=== PATIENT | male | born 1960 | race Two or more races ===

== ENCOUNTER 2018-06-10 10:06 | Inpatient (IN) | payer OTHER ==
[2018-06-10 10:53] VITALS: BMI 29.5
--- NOTE | 2018-06-10 16:40 | HP ---
CIWA Score - CIWA Score Nausea/Vomitin-Int. Nausea w/Dry Heave Muscle Tremors: 2 Anxiety: 2 Agitation: 2 Paroxysmal Sweats: 4-Forehead w/Sweat Beads Orientation: 1-Uncertain about Date (no distress) Tacttile Disturbances: 0-None Auditory Disturbances: 1-Very Mild Visual Disturbances: 0-None Headache: 0-None Present CIWA-Ar Total Score: 16 Admission ROS S - HPI Chief Complaint: alcohol withdrawal sx Allergies/Adverse Reactions: Allergies Allergy/AdvReac Type Severity Reaction Status Date / Time No Known Allergies Allergy Verified 09/28/15 21:24 History of Present Illness: 57 yo male with of alcohol and nicotine dependence is here seeking detox. [facility] MMTP on methadone 80 mg, last medicated yesterday. Reports seen at [facility] three weeks ago for fall as a result of ETOH intoxication. PMHX : Abdominal hernia, DMII, HTN, Hep C, depression. Re[ ports feeling decreased and relapsed a 45 days ago after the of his younger brother. Last detox [facility] 5 months ago. Exam Limitations: No Limitations - Ebola screening Have you traveled outside of the country in the last 21 days: No (N) Have you had contact with anyone from an Ebola affected area: No Have you been sick,other than usual withdrawal symptoms: No Do you have a fever: No - Review of Systems Constitutional: Chills, Diaphoresis, Loss of Appetite, Changes in sleep, Weakness, Unintentional Wgt. Loss EENT: reports: No Symptoms Reported Respiratory: reports: SOB with Exertion Cardiac: reports: No Symptoms Reported GI: reports: Nausea, Vomiting : reports: No Symptoms Reported Musculoskeletal: reports: Back Pain, Joint Pain Integumentary: reports: No Symptoms Reported Neuro: reports: No Symptoms reported Endocrine: reports: Increased Thirst Hematology: reports: No Symptoms Reported Psychiatric: reports: Orientated x3, Depressed Other Systems: Reviewed and Negative Patient History - Patient Medical History Hx Anemia: No Hx Asthma: No Hx Chronic Obstructive Pulmonary Disease (COPD): No Hx Cancer: No Hx Cardiac Disorders: No Hx Congestive Heart Failure: No Hx Hypertension: Yes Hx Hypercholesterolemia: Yes Hx Pacemaker: No HX Cerebrovascular Accident: Yes Hx Seizures: No Hx Dementia: No Hx Diabetes: Yes Hx Gastrointestinal Disorders: No Hx Liver Disease: Yes (Hep C ) Hx Genitourinary Disorders: No Hx Sexually Transmitted Disorders: No Hx Renal Disease (ESRD): No Hx Thyroid Disease: No Hx Human Immunodeficiency Virus (HIV): No (declines testing ) Hx Hepatitis C: Yes Hx Depression: Yes Hx Suicide Attempt: No Hx Bipolar Disorder: No Hx Schizophrenia: No - Patient Surgical History Past Surgical History: No - PPD History Previous Implant?: Yes Documented Results: Positive w/o proof Implanted On Prior [facility] Admission?: No Results: positive ppd PPD to be Administered?: No - Smoking Cessation Smoking history: Current every day smoker Have you smoked in the past 12 months: Yes Aproximately how many cigarettes per day: 4 Hx Chewing Tobacco Use: No Initiated information on smoking cessation: Yes 'Breaking Loose' booklet given: 06/10/18 - Substance & Tx. History Hx Alcohol Use: Yes Hx Substance Use: Yes Substance Use Type: Alcohol Hx Substance Use Treatment: Yes (Last detox [facility] 5 months ago.) - Substances Abused Alcohol Route: Oral Frequency: Daily Amount used: fith & 1pt Vodka Age of first use: 11 Date of Last Use: 06/10/18 Family Disease History - Family Disease History Family Disease History: Diabetes: Father (HAD CA. OF THE PROSTATE AND ), Mother (), CA: Father Admission Physical Exam S - Vital Signs Vital Signs: Vital Signs - 24 hr 06/10/18 10:51 Temperature 97.7 F Pulse Rate 87 Respiratory 18 Rate Blood Pressure 148/84 - Physical General Appearance: Yes: Disheveled, Moderate Distress, Tremorous, Sweating, Anxious HEENTM: Yes: EOMI, Normal ENT Inspection, Normocephalic, Normal Voice, Pharynx Normal, Tm's normal, Other (poor dentition) Respiratory: Yes: Chest Non-Tender, Lungs Clear, Normal Breath Sounds, No Respiratory Distress, No Accessory Muscle Use Neck: Yes: No masses,lesions,Nodules, Trachea in good position Breast: Yes: Breast Exam Deferred Cardiology: Yes: Regular Rhythm, Regular Rate Abdominal: Yes: Normal Bowel Sounds, Non Tender, Soft, Protuberent Genitourinary: Yes: Within Normal Limits Back: Yes: Normal Inspection Musculoskeletal: Yes: full range of Motion, Pelvis Stable, Back pain, Other ( uses cane for ambulation) Extremities: Yes: Normal Capillary Refill, Normal Inspection, Normal Range of Motion, Non-Tender 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 intact, Fully Oriented, Alert, Motor Strength 5/5 Integumentary: Yes: Normal Color, Warm, Diaphoresis Lymphatic: Yes: Within Normal Limits - Diagnostic (1) Diabetes mellitus type 2 in obese Current Visit: Yes Status: Chronic (2) Asthma Current Visit: Yes Status: Chronic Qualifiers: Asthma severity: mild Asthma persistence: intermittent Asthma complication type: unspecified Qualified Code(s): J45.20 - Mild intermittent asthma, uncomplicated (3) GERD (gastroesophageal reflux disease) Current Visit: Yes Status: Chronic Qualifiers: Esophagitis presence: esophagitis presence not specified Qualified Code(s) : K21.9 - Gastro-esophageal reflux disease without esophagitis (4) HTN (hypertension) Current Visit: Yes Status: Chronic Qualifiers: Hypertension type: essential hypertension Qualified Code(s): I10 - Essential (primary) hypertension (5) Hypercholesteremia Current Visit: Yes Status: Chronic (6) Methadone maintenance therapy patient Current Visit: Yes Status: Chronic Comment: on MMTP at [facility] dose 80 mg, dose pending verification (7) Nicotine dependence Current Visit: Yes Status: Chronic Qualifiers: Nicotine product type: cigarettes Substance use status: uncomplicated Qualified Code(s): F17.210 - Nicotine dependence, cigarettes, uncomplicated (8) Alcohol dependence with withdrawal Current Visit: Yes Status: Acute Qualifiers: Complication of substance-induced condition: uncomplicated Qualified Code(s ): F10.230 - Alcohol dependence with withdrawal, uncomplicated (9) Nausea and vomiting Current Visit: Yes Status: Acute Qualifiers: Vomiting type: unspecified Vomiting Intractability: unspecified Qualified Code(s): R11.2 - Nausea with vomiting, unspecified Cleared for Admission [facility] - Detox or Rehab [facility] Level of Care: Medically Managed [facility]ath Alcohol Content Breath Alcohol Content: 0.084 Urine Drug Screen - Results Drug Screen Negative: No Urine Drug Screen Results: BZO-Benzodiazepines, MTD-Methadone
[2018-06-10] MEDS ORDERED: MAGNESIUM HYDROX 2400MG/30ML ORAL SUSPENSION 30 ML CUP PO PRN (16:46)
[2018-06-10] MEDS ORDERED: MAGNESIUM CITRATE 300 ML BOTTLE PO PRN (16:46)
[2018-06-10] MEDS ORDERED: guaiFENesin/D-METHORPHAN HB 10 ML UNIT-DOSE CUPS PO PRN (16:46)
[2018-06-10] MEDS ORDERED: hydrOXYzine PAMOATE 50 MG CAPSULE (FP) PO PRN (16:46)
[2018-06-10] MEDS ORDERED: IBUPROFEN 400 MG TABLET (FP) PO PRN (16:46)
[2018-06-10] MEDS ORDERED: MAG HYDROX/AL HYDROX/SIMETH 30 ML UNIT-DOSE CUP PO PRN (16:46)
[2018-06-10] MEDS ORDERED: P-EPHED 60MG/TRIPROLIDI 2.5MG TABLET PO PRN (16:46)
[2018-06-10] MEDS ORDERED: NICOTINE POLACRILEX 2 MG GUM BUC PRN (16:46)
[2018-06-10] MEDS ORDERED: LOPERAMIDE HCL 2 MG CAPSULE PO PRN (16:46)
[2018-06-10] MEDS ORDERED: MENTHOL/PHENOL 1 EACH UD MM PRN (16:46)
[2018-06-10] MEDS ORDERED: ONDANSETRON *ODT* 4 MG TABLET SL PRN (16:58)
[2018-06-10] MEDS ORDERED: chlordiazePOXIDE HCL 25 MG CAPSULE PO ONE (17:00)
[2018-06-10] MEDS ORDERED: ALBUTEROL SO4 0.083% IH SOL 2.5 MG/3 ML VIAL.NEB. NEB PRN (17:02)
[2018-06-10] MEDS ORDERED: ALBUTEROL SO4 8 GM HFA INHALER IH ONE (18:38)
[2018-06-10 19:29] LABS: URINE APPEARANCE TURBID; URINE BILIRUBIN NEGATIVE (<2.0 mg/dL); URINE COLOR YELLOW; URINE GLUCOSE (UA) 1+ (NEGATIVE); URINE KETONE NEGATIVE (NEGATIVE); URINE LEUK ESTERASE NEGATIVE (NEGATIVE); URINE NITRITE NEGATIVE (NEGATIVE); URINE PROTEIN NEGATIVE (NEGATIVE); URINE UROBILINOGEN NEGATIVE mg/dL (0.2-1.0)
[2018-06-10] MEDS ORDERED: MELATONIN 5 MG TABLETS PO PRN (22:00)
[2018-06-10] MEDS: THIAMINE HCL 100 MG TABLET (FP) PO SCH (22:14)
[2018-06-10] MEDS: chlordiazePOXIDE HCL 25 MG CAPSULE PO SCH (22:14)
[2018-06-10] MEDS: ATORVASTATIN CA 10 MG TABLET (FP) PO SCH (22:17)
[2018-06-11] MEDS: ALBUTEROL SO4 8 GM HFA INHALER IH PRN (01:53)
[2018-06-11] MEDS: chlordiazePOXIDE HCL 25 MG CAPSULE PO PRN (03:23)
[2018-06-11] MEDS: ACETAMINOPHEN 325 MG TABLET (FP) PO PRN ×2 (03:25→14:20)
[2018-06-11] MEDS: chlordiazePOXIDE HCL 25 MG CAPSULE PO SCH ×4 (05:43→22:04)
[2018-06-11] MEDS: INSULIN SLIDING SCALE (NOVOLOG) 1 VIAL SQ SCH ×2 (06:20→16:57)
--- NOTE | 2018-06-11 07:42 | CONSULT ---
[facility] Psychiatric Consult - Data Date of interview: 06/11/18 Admission source: [facility] Identifying data: This is 57 years old male, single father of three, , living alone, unemployed, on PA, with no psychiatric hospitalization history, with history of alcohol and nicotine dependence, reporting Alcohol withdrawal symptoms and is here seeking detox. [facility]op[facility] MMTP 80MG PER DAY. Substance Abuse History: Smoking history: Current every day smoker. Have you smoked in the past 12 months: Yes. Aproximately how many cigarettes per day: 4. Hx Chewing Tobacco Use: No. Initiated information on smoking cessation: Yes. 'Breaking Loose' booklet given: 06/10/18. - Substance & Tx. History. Hx Alcohol Use: Yes. Hx Substance Use: Yes. Substance Use Type: Alcohol. Hx Substance Use Treatment: Yes (Last detox [facility] 5 months ago.). - Substances Abused. Alcohol. Route: Oral. Frequency: Daily. Amount used: fith & 1pt Vodka. Age of first use: 11. Date of Last Use: 06/10/18 Medical History: DM-2, Asthma, GERD, HTN, Hypercholesterolemia, MMTP 80mg per [facility] Psychiatric History: Patient reports history of anxiety and depression, insomnia , reports taking prior to admission: Trazodone 150mg po qhs for insomnia ands depression. Denies suicidal, homicidal ideation history Physical/Sexual Abuse/Trauma History: Denies Additional Comment: Trazodone 150mg po qhs Mental Status Exam - Mental Status Exam Alert and Oriented to: Person Cognitive Function: Fair Patient Appearance: Unkempt Mood: Sad Affect: Normal Range Patient Behavior: Sedated Speech Pattern: Delayed Voice Loudness: Mildly Soft/Quiet Thought Process: Circumstantial Thought Disorder: Being Controlled Hallucinations: Denies Suicidal Ideation: Denies Homicidal Ideation: Denies Insight/Judgement: Fair Sleep: Difficulty falling asleep Appetite: Weight gain Muscle strength/Tone: Mild Hypotonicity Gait/Station: Shuffling Additional Comments: Trazodone 150mg po qhs Psychiatric Findings - Problem List ([place] 1, 2,3) (1) Alcohol dependence with withdrawal Current Visit: Yes Status: Acute Qualifiers: Complication of substance-induced condition: uncomplicated Qualified Code(s ): F10.230 - Alcohol dependence with withdrawal, uncomplicated (2) Diabetes mellitus type 2 in obese Current Visit: Yes Status: Chronic (3) GERD (gastroesophageal reflux disease) Current Visit: Yes Status: Chronic Qualifiers: Esophagitis presence: esophagitis presence not specified Qualified Code(s) : K21.9 - Gastro-esophageal reflux disease without esophagitis (4) HTN (hypertension) Current Visit: Yes Status: Chronic Qualifiers: Hypertension type: essential hypertension Qualified Code(s): I10 - Essential (primary) hypertension (5) Hypercholesteremia Current Visit: Yes Status: Chronic (6) Methadone maintenance therapy patient Current Visit: Yes Status: Chronic Comment: on MMTP at [facility] dose 80 mg, dose pending verification (7) Nicotine dependence Current Visit: Yes Status: Chronic Qualifiers: Nicotine product type: cigarettes Substance use status: uncomplicated Qualified Code(s): F17.210 - Nicotine dependence, cigarettes, uncomplicated (8) Alcohol dependence Current Visit: No Status: Acute Qualifiers: Substance use status: in withdrawal Complication of substance-induced condition: with unspecified complication Qualified Code(s): F10.239 - Alcohol dependence with withdrawal, unspecified (9) MDD (major depressive disorder), recurrent episode, severe Current Visit: No Status: Acute (10) Diabetes 1.5, managed as type 1 Current Visit: No Status: Chronic (11) Major depressive disorder, recurrent severe without psychotic features Current Visit: No Status: Chronic (12) Obesity Current Visit: No Status: Chronic Qualifiers: Obesity type: unspecified obesity type Qualified Code(s): E66.9 - Obesity, unspecified - Initial Treatment Plan Initial Treatment Plan: Trazodone 150mg po qhs
[2018-06-11 09:42] LABS: HEMATOCRIT 32.3 % (35.4-49); HEMOGLOBIN 10.6 GM/dL (11.7-16.9); MCH 31.9 pg (25.7-33.7); MCHC 32.8 g/dl (32.0-35.9); MEAN CELL VOLUME 97.4 fl (80-96); MEAN PLT VOLUME 10.8 fl (7.5-11.1); PLATELET COUNT 133 K/MM3 (134-434); RBC 3.32 M/mm3 (4.00-5.60); RDW 14.7 % (11.9-15.9); WHITE BLOOD COUNT 8.1 K/mm3 (4.0-10.0)
[2018-06-11] MEDS ORDERED: LISINOPRIL 10 MG TABLET (FP) PO SCH (10:00)
[2018-06-11] MEDS: SULFACETAMIDE SODIUM 10% OPHTHALMIC DROPS 15 ML BOTTLE OS SCH (10:02)
[2018-06-11] MEDS: PRENATAL VITAMINS W/ FOLIC ACID TABLET (FP) PO SCH (10:03)
[2018-06-11] MEDS: NICOTINE 14 MG/24 HOURS TOPICAL PATCH TD SCH (10:04)
[2018-06-11] MEDS ORDERED: METHADONE HCL 40 MG DISPERSABLE TABLET PO ONE (10:25)
[2018-06-11 10:28] LABS: CHLORIDE 96 mmol/L (98-107); POTASSIUM 3.5 mmol/L (3.5-5.1); SODIUM 135 mmol/L (136-145)
[2018-06-11 10:48] LABS: BLOOD UREA NITROGEN 9 mg/dL (7-18); CREATININE 0.8 mg/dL (0.7-1.3); GLUCOSE,RANDOM 140 mg/dL (74-106)
[2018-06-11 10:49] LABS: ALBUMIN 2.8 g/dl (3.4-5.0); ALK PHOS 141 U/L (45-117); ANION GAP 9 (8-16); BILIRUBIN,TOTAL 0.9 mg/dL (0.2-1.0); CALCIUM 7.6 mg/dL (8.5-10.1); CO2 30 mmol/L (21-32); SGOT/AST 78 U/L (15-37); SGPT/ALT 44 U/L (12-78); TOT PROT 6.6 g/dl (6.4-8.2)
--- NOTE | 2018-06-11 10:50 | PN ---
S CIWA - CIWA Score Nausea/Vomitin-Mild Nausea/No Vomiting Muscle Tremors: 4-Moderate,w/Arms Extend Anxiety: 3 Agitation: 3 Paroxysmal Sweats: 1-Minimal Palms Moist Orientation: 0-Oriented Tacttile Disturbances: 1-Very Mild Itch/Numbness Auditory Disturbances: 0-None Visual Disturbances: 0-None Headache: 1-Very Mild CIWA-Ar Total Score: 14 [facility] Progress Note (SOAP) Subjective: sweat tremor trouble to fall a sleep restlessness Objective: 06/11/18 10:42 Vital Signs Temperature 98.2 F 06/11/18 10:09 Pulse Rate 78 06/11/18 10:09 Respiratory Rate 16 06/11/18 10:09 Blood Pressure 150/94 06/11/18 10:09 O2 Sat by Pulse Oximetry (%) Laboratory Last Values WBC 8.1 K/mm3 (4.0-10.0) 06/11/18 07:00 RBC 3.32 M/mm3 (4.00-5.60) L 06/11/18 07:00 Hgb 10.6 GM/dL (11.7-16.9) L 06/11/18 07:00 Hct 32.3 % (35.4-49) L D 06/11/18 07:00 MCV 97.4 fl (80-96) H 06/11/18 07:00 MCH 31.9 pg (25.7-33.7) 06/11/18 07:00 MCHC 32.8 g/dl (32.0-35.9) 06/11/18 07:00 RDW 14.7 % (11.9-15.9) 06/11/18 07:00 Plt Count 133 K/MM3 (134-434) L 06/11/18 07:00 MPV 10.8 fl (7.5-11.1) 06/11/18 07:00 POC Glucometer 120 UNITS (80-120) 06/11/18 05:49 Urine Color Yellow 06/10/18 17:23 Urine Appearance Turbid 06/10/18 17:23 Urine pH 5.0 (5.0-8.0) 06/10/18 17:23 Ur Specific [place] 1.020 (1.001-1.035) 06/10/18 17:23 Urine Protein Negative (NEGATIVE) 06/10/18 17:23 Urine Glucose (UA) 1+ (NEGATIVE) H 06/10/18 17:23 Urine Ketones Negative (NEGATIVE) 06/10/18 17:23 Urine Blood Negative (NEGATIVE) 06/10/18 17:23 Urine Nitrite Negative (NEGATIVE) 06/10/18 17:23 Urine Bilirubin Negative (<2.0 mg/dL) 06/10/18 17:23 Urine Urobilinogen Negative mg/dL (0.2-1.0) 06/10/18 17:23 Ur Leukocyte Esterase Negative (NEGATIVE) 06/10/18 17:23 lab noted Assessment: 06/11/18 10:42 withdrawal sx 06/11/18 10:50 hypertension Plan: continue detox
--- NOTE | 2018-06-11 13:36 | EKG ---
Test Reason : Blood Pressure : / mmHG Vent. Rate : 068 BPM Atrial Rate : 068 BPM P-R Int : 140 ms QRS Dur : 084 ms QT Int : 416 ms P-R-T Axes : 058 038 073 degrees QTc Int : 442 ms NORMAL SINUS RHYTHM INCREASED R/S RATIO IN V1, CONSIDER EARLY TRANSITION OR POSTERIOR INFARCT ABNORMAL ECG NO PREVIOUS ECGS AVAILABLE Confirmed by LUIS GALEANA MD ([id number]) on 06/11/2018 1:36:09 PM Referred By: Confirmed By:LUIS GALEANA MD
[2018-06-11] MEDS ORDERED: LISINOPRIL 10 MG TABLET (FP) PO ONE (14:00)
--- NOTE | 2018-06-11 14:51 | PN ---
[facility] Progress Note Note: S: c/o mid chest sharp pain 9/10 over "months" no treatment subsided spontaneously O: observed patient lying on bed, breathing even equal no shortness of breath bp 144/94 lisinopril 10 mg x 1 patient tolerated well S1S2 no murmur no gallops lungs: clear bilaterally left lower lob breath sound diminished abdomen soft none tenderness denies dizziness tylenal 650 mg x 1 chest x ray indicated that multiple thoratic trauma with healed fractured ribs cage EKG no significant change A: none cardiac chest wall pain P: patient relocated to close to nurse's station bp monitoring post lisinopril 10 mg + tylenal 650 mg x 1 repeat bp after 2 hours around 4 pm
[2018-06-11] MEDS: ATORVASTATIN CA 10 MG TABLET (FP) PO SCH (22:04)
[2018-06-11] MEDS: traZODone HCL 50 MG TABLET (FP) PO SCH (22:04)
[2018-06-11] MEDS: THIAMINE HCL 100 MG TABLET (FP) PO SCH (22:05)
[2018-06-12] MEDS: chlordiazePOXIDE HCL 25 MG CAPSULE PO PRN (01:09)
[2018-06-12] MEDS: chlordiazePOXIDE HCL 25 MG CAPSULE PO SCH ×3 (05:58→17:14)
[2018-06-12] MEDS: METHADONE HCL 40 MG DISPERSABLE TABLET PO SCH (05:58)
[2018-06-12] MEDS: INSULIN SLIDING SCALE (NOVOLOG) 1 VIAL SQ SCH ×2 (07:20→17:15)
--- NOTE | 2018-06-12 10:08 | PN ---
S CIWA - CIWA Score Nausea/Vomitin Muscle Tremors: 3 Anxiety: 2 Agitation: 1-Slight > Activity Paroxysmal Sweats: 1-Minimal Palms Moist Orientation: 0-Oriented Tacttile Disturbances: 1-Very Mild Itch/Numbness Auditory Disturbances: 1-Very Mild Visual Disturbances: 0-None Headache: 2-Mild CIWA-Ar Total Score: 14 S Progress Note (SOAP) Subjective: alert,irritable,anxious,interrupted sleep,tremor Objective: 06/12/18 10:06 Vital Signs Temperature 97.2 F L 06/12/18 09:06 Pulse Rate 82 06/12/18 09:06 Respiratory Rate 19 06/12/18 09:06 Blood Pressure 143/90 06/12/18 09:06 O2 Sat by Pulse Oximetry (%) 06/12/18 10:06 Laboratory Last Values WBC 8.1 K/mm3 (4.0-10.0) 06/11/18 07:00 RBC 3.32 M/mm3 (4.00-5.60) L 06/11/18 07:00 Hgb 10.6 GM/dL (11.7-16.9) L 06/11/18 07:00 Hct 32.3 % (35.4-49) L D 06/11/18 07:00 MCV 97.4 fl (80-96) H 06/11/18 07:00 MCH 31.9 pg (25.7-33.7) 06/11/18 07:00 MCHC 32.8 g/dl (32.0-35.9) 06/11/18 07:00 RDW 14.7 % (11.9-15.9) 06/11/18 07:00 Plt Count 133 K/MM3 (134-434) L 06/11/18 07:00 MPV 10.8 fl (7.5-11.1) 06/11/18 07:00 Sodium 135 mmol/L (136-145) L 06/11/18 07:00 Potassium 3.5 mmol/L (3.5-5.1) 06/11/18 07:00 Chloride 96 mmol/L (98-107) L D 06/11/18 07:00 Carbon Dioxide 30 mmol/L (21-32) 06/11/18 07:00 Anion Gap 9 (8-16) 06/11/18 07:00 BUN 9 mg/dL (7-18) 06/11/18 07:00 Creatinine 0.8 mg/dL (0.7-1.3) 06/11/18 07:00 Creat Clearance w eGFR > 60 (>60) 06/11/18 07:00 POC Glucometer 161 UNITS (80-120) 06/12/18 06:02 Random Glucose 140 mg/dL (74-106) H D 06/11/18 07:00 Calcium 7.6 mg/dL (8.5-10.1) L 06/11/18 07:00 Total Bilirubin 0.9 mg/dL (0.2-1.0) 06/11/18 07:00 AST 78 U/L (15-37) H D 06/11/18 07:00 ALT 44 U/L (12-78) D 06/11/18 07:00 Alkaline Phosphatase 141 U/L (45-117) H 06/11/18 07:00 Total Protein 6.6 g/dl (6.4-8.2) 06/11/18 07:00 Albumin 2.8 g/dl (3.4-5.0) L 06/11/18 07:00 Urine Color Yellow 06/10/18 17:23 Urine Appearance Turbid 06/10/18 17:23 Urine pH 5.0 (5.0-8.0) 06/10/18 17:23 Ur Specific [place] 1.020 (1.001-1.035) 06/10/18 17:23 Urine Protein Negative (NEGATIVE) 06/10/18 17:23 Urine Glucose (UA) 1+ (NEGATIVE) H 06/10/18 17:23 Urine Ketones Negative (NEGATIVE) 06/10/18 17:23 Urine Blood Negative (NEGATIVE) 06/10/18 17:23 Urine Nitrite Negative (NEGATIVE) 06/10/18 17:23 Urine Bilirubin Negative (<2.0 mg/dL) 06/10/18 17:23 Urine Urobilinogen Negative mg/dL (0.2-1.0) 06/10/18 17:23 Ur Leukocyte Esterase Negative (NEGATIVE) 06/10/18 17:23 RPR Titer Nonreactive (NONREACTIVE) 06/11/18 07:00 Assessment: 06/12/18 10:07 withdrawal symptom Plan: continue detox,bgm monitoring
[2018-06-12] MEDS: PRENATAL VITAMINS W/ FOLIC ACID TABLET (FP) PO SCH (10:10)
[2018-06-12] MEDS: LISINOPRIL 20 MG TABLET (FP) PO SCH (10:10)
[2018-06-12] MEDS: NICOTINE 14 MG/24 HOURS TOPICAL PATCH TD SCH (10:10)
[2018-06-12] MEDS: SULFACETAMIDE SODIUM 10% OPHTHALMIC DROPS 15 ML BOTTLE OS SCH (10:10)
--- NOTE | 2018-06-12 11:31 | EKG ---
Test Reason : Blood Pressure : / mmHG Vent. Rate : 061 BPM Atrial Rate : 061 BPM P-R Int : 134 ms QRS Dur : 094 ms QT Int : 470 ms P-R-T Axes : 062 038 070 degrees QTc Int : 473 ms NORMAL SINUS RHYTHM NORMAL ECG Confirmed by MD JEFFREY, ADONIS ([id number]) on 06/12/2018 11:31:39 AM Referred By: Confirmed By:ADONIS MURPHY MD
[2018-06-12] MEDS: ALBUTEROL SO4 8 GM HFA INHALER IH PRN (18:54)
[2018-06-12] MEDS: traZODone HCL 50 MG TABLET (FP) PO SCH (22:03)
[2018-06-12] MEDS: chlordiazePOXIDE 5 MG CAPSULE PO SCH (22:03)
[2018-06-12] MEDS: THIAMINE HCL 100 MG TABLET (FP) PO SCH (22:03)
[2018-06-12] MEDS: ATORVASTATIN CA 10 MG TABLET (FP) PO SCH (22:04)
[2018-06-13] MEDS: chlordiazePOXIDE 5 MG CAPSULE PO SCH ×2 (06:41→10:00)
[2018-06-13] MEDS: METHADONE HCL 40 MG DISPERSABLE TABLET PO SCH (06:43)
[2018-06-13] MEDS: INSULIN SLIDING SCALE (NOVOLOG) 1 VIAL SQ SCH (07:07)
--- NOTE | 2018-06-13 08:52 | PN ---
S Progress Note (SOAP) Subjective: ALERT,NO COMPLAINT Objective: 06/13/18 08:51 Vital Signs Temperature 98.1 F 06/13/18 07:32 Pulse Rate 62 06/13/18 07:32 Respiratory Rate 18 06/13/18 07:32 Blood Pressure 142/73 06/13/18 07:32 O2 Sat by Pulse Oximetry (%) Assessment: 06/13/18 08:51 DETOX COMPLETED,NO WITHDRAWAL SYMPTOM Plan: DISCHARGE TODAY,FOLLOW UP WITH [facility]
--- NOTE | 2018-06-13 08:58 | DS ---
[facility] Detox Discharge Summary Admission Date: 06/10/18 Discharge Date: 06/13/18 - History Present History: Alcohol Dependence, MMTP Additional Comments: FOLLOW UP WITH AFTER CARE PROGRAM ARRANGEMENT Pertinent Past History: HYPERTENSION TYPE 2 DM GERD - Physical Exam Results Vital Signs: Vital Signs Temperature 98.1 F 06/13/18 07:32 Pulse Rate 62 06/13/18 07:32 Respiratory Rate 18 06/13/18 07:32 Blood Pressure 142/73 06/13/18 07:32 O2 Sat by Pulse Oximetry (%) Pertinent Admission Physical Exam Findings: WITHDRAWAL SIGNS AND SYMPTOM Laboratory Last Values WBC 8.1 K/mm3 (4.0-10.0) 06/11/18 07:00 RBC 3.32 M/mm3 (4.00-5.60) L 06/11/18 07:00 Hgb 10.6 GM/dL (11.7-16.9) L 06/11/18 07:00 Hct 32.3 % (35.4-49) L D 06/11/18 07:00 MCV 97.4 fl (80-96) H 06/11/18 07:00 MCH 31.9 pg (25.7-33.7) 06/11/18 07:00 MCHC 32.8 g/dl (32.0-35.9) 06/11/18 07:00 RDW 14.7 % (11.9-15.9) 06/11/18 07:00 Plt Count 133 K/MM3 (134-434) L 06/11/18 07:00 MPV 10.8 fl (7.5-11.1) 06/11/18 07:00 Sodium 135 mmol/L (136-145) L 06/11/18 07:00 Potassium 3.5 mmol/L (3.5-5.1) 06/11/18 07:00 Chloride 96 mmol/L (98-107) L D 06/11/18 07:00 Carbon Dioxide 30 mmol/L (21-32) 06/11/18 07:00 Anion Gap 9 (8-16) 06/11/18 07:00 BUN 9 mg/dL (7-18) 06/11/18 07:00 Creatinine 0.8 mg/dL (0.7-1.3) 06/11/18 07:00 Creat Clearance w eGFR > 60 (>60) 06/11/18 07:00 POC Glucometer 135 UNITS (80-120) 06/13/18 06:44 Random Glucose 140 mg/dL (74-106) H D 06/11/18 07:00 Calcium 7.6 mg/dL (8.5-10.1) L 06/11/18 07:00 Total Bilirubin 0.9 mg/dL (0.2-1.0) 06/11/18 07:00 AST 78 U/L (15-37) H D 06/11/18 07:00 ALT 44 U/L (12-78) D 06/11/18 07:00 Alkaline Phosphatase 141 U/L (45-117) H 06/11/18 07:00 Total Protein 6.6 g/dl (6.4-8.2) 06/11/18 07:00 Albumin 2.8 g/dl (3.4-5.0) L 06/11/18 07:00 Urine Color Yellow 06/10/18 17:23 Urine Appearance Turbid 06/10/18 17:23 Urine pH 5.0 (5.0-8.0) 06/10/18 17:23 Ur Specific [place] 1.020 (1.001-1.035) 06/10/18 17:23 Urine Protein Negative (NEGATIVE) 06/10/18 17:23 Urine Glucose (UA) 1+ (NEGATIVE) H 06/10/18 17:23 Urine Ketones Negative (NEGATIVE) 06/10/18 17:23 Urine Blood Negative (NEGATIVE) 06/10/18 17:23 Urine Nitrite Negative (NEGATIVE) 06/10/18 17:23 Urine Bilirubin Negative (<2.0 mg/dL) 06/10/18 17:23 Urine Urobilinogen Negative mg/dL (0.2-1.0) 06/10/18 17:23 Ur Leukocyte Esterase Negative (NEGATIVE) 06/10/18 17:23 RPR Titer Nonreactive (NONREACTIVE) 06/11/18 07:00 Vital Signs Temperature 98.1 F 06/13/18 07:32 Pulse Rate 62 06/13/18 07:32 Respiratory Rate 18 06/13/18 07:32 Blood Pressure 142/73 06/13/18 07:32 O2 Sat by Pulse Oximetry (%) - Treatment Hospital Course: Detox Protocol Followed, Detoxed Safely, Responded well, Discharged Condition Good, Rehab Referral Accepted Patient has Accepted a Rehab Referral to: [facility] - Medication Discharge Medications: Ambulatory Orders Insulin Glargine,Hum.rec.anlog [Lantus (10mL VIAL) -] 30 units SQ HS 09/28/15 Paroxetine HCl [Paxil] 20 mg PO HS #30 tablet 09/29/15 Lisinopril [Prinivil] 10 mg PO DAILY #30 tablet 10/02/15 Thiamine HCl [Vitamin B1 -] 100 mg PO HS #30 tablet 10/02/15 metFORMIN HCL [Glucophage -] 850 mg PO BID #60 tablet 10/02/15 Atorvastatin Ca [Lipitor] 10 mg PO HS 06/10/18 Chlordiazepoxide [Librium -] 50 mg PO BID 06/10/18 Sulfacetamide Sodium 10% [Bleph-10 Ophthalmic Solution -] 2 drop OS DAILY Methadone [Dolophine -] 80 mg PO DAILY 06/11/18 traZODone HCL [Desyrel -] 150 mg PO HS #30 tablet 06/11/18 - Diagnosis (1) Alcohol dependence with withdrawal Current Visit: Yes Status: Acute Qualifiers: Complication of substance-induced condition: uncomplicated Qualified Code(s ): F10.230 - Alcohol dependence with withdrawal, uncomplicated (2) Diabetes mellitus type 2 in obese Current Visit: Yes Status: Chronic (3) GERD (gastroesophageal reflux disease) Current Visit: Yes Status: Chronic Qualifiers: Esophagitis presence: esophagitis presence not specified Qualified Code(s) : K21.9 - Gastro-esophageal reflux disease without esophagitis (4) HTN (hypertension) Current Visit: Yes Status: Chronic Qualifiers: Hypertension type: essential hypertension Qualified Code(s): I10 - Essential (primary) hypertension (5) Hypercholesteremia Current Visit: Yes Status: Chronic (6) Methadone maintenance therapy patient Current Visit: Yes Status: Chronic - AMA Did Patient Leave Against Medical Advice: No
[2018-06-13 09:11] VITALS: BP 125/81; PULSE 80; TEMP 98
[2018-06-13] MEDS: LISINOPRIL 20 MG TABLET (FP) PO SCH (09:57)
[2018-06-13] MEDS: SULFACETAMIDE SODIUM 10% OPHTHALMIC DROPS 15 ML BOTTLE OS SCH (09:57)
[2018-06-13] MEDS: PRENATAL VITAMINS W/ FOLIC ACID TABLET (FP) PO SCH (09:58)
[2018-06-13] MEDS: NICOTINE 14 MG/24 HOURS TOPICAL PATCH TD SCH (10:42)
[2018-06-13] MEDS ORDERED: chlordiazePOXIDE HCL 10 MG CAPSULE PO SCH (23:00)
== END 2018-06-13 12:52 | disposition other institution (70) | DRG 773 ==
LOC: YASAS 10:06 → Y6N 16:20
PROVIDERS: ADMIT Surgery; ATTEND Surgery
PROC: HZ2ZZZZ Detoxification Services for Substance Abuse Treatment (ICD-10-PCS; principal; 2018-06-10)
DX: F10.230 Alcohol dependence with withdrawal, uncomplicated (principal); F11.20 Opioid dependence, uncomplicated; F17.210 Nicotine dependence, cigarettes, uncomplicated; F33.2 Major depressive disorder, recurrent severe without psychotic features; I10 Essential (primary) hypertension; E11.9 Type 2 diabetes mellitus without complications; Z79.84 Long term (current) use of oral hypoglycemic drugs; E78.00 Pure hypercholesterolemia, unspecified; K21.9 Gastro-esophageal reflux disease without esophagitis; R11.2 Nausea with vomiting, unspecified; Z68.29 Body mass index [BMI] 29.0-29.9, adult; B18.2 Chronic viral hepatitis C
CPT/HCPCS: 36415; 71046-TC-FY; 80053; 81003; 82962; 85027; 86593; 93005; 93010

== ENCOUNTER 2018-09-05 15:15 | Inpatient (IN) | payer OTHER ==
[2018-09-05 15:54] VITALS: BMI 30.4
[2018-09-05] MEDS ORDERED: MAGNESIUM CITRATE 300 ML BOTTLE PO PRN (16:56)
[2018-09-05] MEDS ORDERED: MAG HYDROX/AL HYDROX/SIMETH 30 ML UNIT-DOSE CUP PO PRN (16:56)
[2018-09-05] MEDS ORDERED: guaiFENesin/D-METHORPHAN HB 10 ML UNIT-DOSE CUPS PO PRN (16:56)
[2018-09-05] MEDS ORDERED: MENTHOL/PHENOL 1 EACH UD MM PRN (16:56)
[2018-09-05] MEDS ORDERED: ACETAMINOPHEN 325 MG TABLET (FP) PO PRN (16:56)
[2018-09-05] MEDS ORDERED: NICOTINE POLACRILEX 2 MG GUM BC PRN (16:56)
[2018-09-05] MEDS ORDERED: P-EPHED 60MG/TRIPROLIDI 2.5MG TABLET PO PRN (16:56)
[2018-09-05] MEDS ORDERED: LOPERAMIDE HCL 2 MG CAPSULE PO PRN (16:56)
[2018-09-05] MEDS ORDERED: MAGNESIUM HYDROX 2400MG/30ML ORAL SUSPENSION 30 ML CUP PO PRN (16:56)
[2018-09-05] MEDS ORDERED: chlordiazePOXIDE HCL 25 MG CAPSULE PO PRN (16:56)
[2018-09-05] MEDS ORDERED: hydrOXYzine PAMOATE 50 MG CAPSULE (FP) PO PRN (16:56)
[2018-09-05] MEDS ORDERED: ALBUTEROL SO4 0.083% IH SOL 2.5 MG/3 ML VIAL.NEB. NEB PRN (17:01)
--- NOTE | 2018-09-05 17:12 | HP ---
CIWA Score - CIWA Score Nausea/Vomitin-Int. Nausea w/Dry Heave Muscle Tremors: 3 Anxiety: 3 Agitation: 3 Paroxysmal Sweats: 3 Orientation: 0-Oriented Tacttile Disturbances: 0-None Auditory Disturbances: 0-None Visual Disturbances: 0-None Headache: 1-Very Mild CIWA-Ar Total Score: 17 Admission ROS BHS - HPI Chief Complaint: "I am going through withdrawal, I'm feeling edgy" Alcohol withdrawal Sx Allergies/Adverse Reactions: Allergies Allergy/AdvReac Type Severity Reaction Status Date / Time No Known Allergies Allergy Verified 09/05/18 16:39 History of Present Illness: Patient is a 58 yo male with hx of marijuana, nicotine and alcohol dependence is here seeking detox, this is one of multiple admissions, with frequent relapse. Bahai MMTP on methadone 80 mg, last medicated today. Last detox & Rehab [facility] 06/10/18 - 06/28/18. Reports was seen at [facility] emergency department yesterday for alcohol withdrawal and fall. PMHX : frequent fall, Asthma, DMII, HTN, Hep C, depression. Denies suicidal / homicidal ideation Denies hx of blackouts or seizures. Exam Limitations: No Limitations - Ebola screening Have you traveled outside of the country in the last 21 days: No Have you had contact with anyone from an Ebola affected area: No Have you been sick,other than usual withdrawal symptoms: No - Review of Systems Constitutional: Chills, Loss of Appetite, Changes in sleep, Unintentional Wgt. Loss, Other EENT: reports: Nose Congestion Respiratory: reports: Cough Cardiac: reports: No Symptoms Reported GI: reports: Nausea, Poor Appetite, Poor Fluid Intake, Vomiting : reports: No Symptoms Reported Musculoskeletal: reports: Back Pain, Joint Pain Integumentary: reports: No Symptoms Reported Neuro: reports: No Symptoms reported Endocrine: reports: Increased Thirst Hematology: reports: No Symptoms Reported Psychiatric: reports: Orientated x3, Anxious Other Systems: Reviewed and Negative Patient History - Patient Medical History Hx Anemia: No Hx Asthma: Yes (Pt is) Hx Chronic Obstructive Pulmonary Disease (COPD): No Hx Cancer: No Hx Cardiac Disorders: No Hx Congestive Heart Failure: No Hx Hypertension: Yes (on meds.) Hx Hypercholesterolemia: Yes Hx Pacemaker: No HX Cerebrovascular Accident: Yes Hx Seizures: No Hx Dementia: No Hx Diabetes: Yes (Type II) Hx Gastrointestinal Disorders: No Hx Liver Disease: Yes (Hep C ) Hx Genitourinary Disorders: No Hx Sexually Transmitted Disorders: No Hx Renal Disease (ESRD): No Hx Thyroid Disease: No Hx Human Immunodeficiency Virus (HIV): No (declines testing ) Hx Hepatitis C: Yes Hx Depression: Yes Hx Suicide Attempt: No Hx Bipolar Disorder: No Hx Schizophrenia: No - Patient Surgical History Past Surgical History: No Hx Neurologic Surgery: No Hx Cataract Extraction: No Hx Cardiac Surgery: No Hx Lung Surgery: No Hx Breast Surgery: No Hx Breast Biopsy: No Hx Abdominal Surgery: Yes (Abdominal hernia repair) Hx Appendectomy: No Hx Cholecystectomy: No Hx Genitourinary Surgery: No Hx Orthopedic Surgery: No Anesthesia Reaction: No - PPD History Previous Implant?: Yes Documented Results: Positive w/proof Implanted On Prior [facility] Admission?: No Results: positive ppd - Smoking Cessation Smoking history: Current some day smoker Have you smoked in the past 12 months: Yes Aproximately how many cigarettes per day: 7 Hx Chewing Tobacco Use: No Initiated information on smoking cessation: Yes 'Breaking Loose' booklet given: 09/05/18 - Substance & Tx. History Hx Alcohol Use: Yes Hx Substance Use: Yes Substance Use Type: Alcohol, Marijuana Hx Substance Use Treatment: Yes (Last detox & Rehab [facility] 06/10/18 - 06/28/18.) - Substances Abused Alcohol Route: Oral Frequency: Daily Amount used: FIFTH OF VODKA Age of first use: 14 Date of Last Use: 09/05/18 Marijuana/Hashish Route: Smoking Frequency: 1-2 times per week Amount used: 1 JOINT Age of first use: 14 Date of Last Use: 08/29/18 Family Disease History - Family Disease History Family Disease History: Diabetes: Father (HAD CA. OF THE PROSTATE AND ), Mother (), CA: Father Admission Physical Exam BHS - Vital Signs Vital Signs: Vital Signs - 24 hr 09/05/18 15:41 Temperature 98.5 F Pulse Rate 79 Respiratory 20 Rate Blood Pressure 185/101 H - Physical General Appearance: Yes: Disheveled, Moderate Distress, Obese, Sweating, Anxious HEENTM: Yes: EOMI, Hearing grossly Normal, Normal ENT Inspection, Pharynx Normal , Scleral Ictenus R, Scleral Ictenus L, Rhinorrhea, Other (+ scar from past tracheostomy removed, cheilithis) Respiratory: Yes: Chest Non-Tender, Lungs Clear, Normal Breath Sounds, No Respiratory Distress, No Accessory Muscle Use Neck: Yes: Within Normal Limits Breast: Yes: Breast Exam Deferred Cardiology: Yes: Regular Rhythm, Regular Rate Abdominal: Yes: Normal Bowel Sounds, Flat, Soft, Protuberent Back: Yes: Normal Inspection Musculoskeletal: Yes: full range of Motion, Gait Steady, Pelvis Stable, Back pain Extremities: Yes: Normal Capillary Refill, Normal Inspection, Normal Range of Motion Neurological: Yes: sealer dry cell II-XII NML intact, Fully Oriented, Alert, Motor Strength 5/5, Depressed Affect Integumentary: Yes: Normal Color, Clammy, Diaphoresis Lymphatic: Yes: Within Normal Limits - Addiitonal Findings: Patient educated to follow up with primary care provider upon discharge re: Hep C, DM II, HTN. Patient verbalizes understanding. - Diagnostic (1) Hepatitis C Current Visit: Yes Status: Chronic Qualifiers: Viral hepatitis chronicity: chronic (2) Alcohol dependence with withdrawal Current Visit: Yes Status: Acute Qualifiers: Complication of substance-induced condition: uncomplicated Qualified Code(s ): F10.230 - Alcohol dependence with withdrawal, uncomplicated (3) Nausea and vomiting Current Visit: Yes Status: Acute Qualifiers: Vomiting type: unspecified Vomiting Intractability: unspecified Qualified Code(s): R11.2 - Nausea with vomiting, unspecified (4) Asthma Current Visit: Yes Status: Chronic Qualifiers: Asthma severity: mild Asthma persistence: intermittent Asthma complication type: unspecified Qualified Code(s): J45.20 - Mild intermittent asthma, uncomplicated (5) Diabetes mellitus type 2 in obese Current Visit: No Status: Chronic (6) GERD (gastroesophageal reflux disease) Current Visit: Yes Status: Chronic Qualifiers: Esophagitis presence: esophagitis presence not specified Qualified Code(s) : K21.9 - Gastro-esophageal reflux disease without esophagitis (7) HTN (hypertension) Current Visit: Yes Status: Chronic Qualifiers: Hypertension type: essential hypertension Qualified Code(s): I10 - Essential (primary) hypertension (8) Nicotine dependence Current Visit: Yes Status: Chronic Qualifiers: Nicotine product type: cigarettes Substance use status: uncomplicated Qualified Code(s): F17.210 - Nicotine dependence, cigarettes, uncomplicated (9) Opioid dependence on agonist therapy Current Visit: Yes Status: Chronic Cleared for Admission [facility] - Detox or Rehab [facility] Level of Care: Medically Managed Detox Regimen/Protocol: Librium [facility] Breath Alcohol Content Breath Alcohol Content: 0 Urine Drug Screen - Results Drug Screen Negative: No Urine Drug Screen Results: THC-Marijuana, BAR-Barbiturates, BZO-Benzodiazepines , MTD-Methadone
[2018-09-05] MEDS ORDERED: chlordiazePOXIDE HCL 25 MG CAPSULE PO ONE (17:45)
[2018-09-05] MEDS ORDERED: cloNIDine HCL 0.1 MG TABLET PO ONE ×2 (21:29)
[2018-09-05] MEDS: THIAMINE HCL 100 MG TABLET (FP) PO SCH (22:08)
[2018-09-05] MEDS: ATORVASTATIN CA 10 MG TABLET (FP) PO SCH (22:09)
[2018-09-05] MEDS: MELATONIN 5 MG TABLETS PO PRN (22:09)
[2018-09-05] MEDS: chlordiazePOXIDE HCL 25 MG CAPSULE PO SCH (22:09)
[2018-09-05] MEDS: INSULIN (LEVEMIR) 100 UNITS/ML UNITS SQ SCH (22:13)
[2018-09-05] MEDS ORDERED: ONDANSETRON *ODT* 4 MG TABLET SL PRN (22:14)
[2018-09-05 23:20] LABS: URINE APPEARANCE CLOUDY; URINE BILIRUBIN NEGATIVE (<2.0 mg/dL); URINE COLOR AMBER; URINE GLUCOSE (UA) 3+ (NEGATIVE); URINE KETONE 1+ (NEGATIVE); URINE LEUK ESTERASE NEGATIVE (NEGATIVE); URINE NITRITE NEGATIVE (NEGATIVE); URINE PROTEIN 2+ (NEGATIVE); URINE UROBILINOGEN 4.0 E.U/dl mg/dL (0.2-1.0)
[2018-09-05 23:31] LABS: EPI CELLS RARE /HPF (FEW); URINE HYALINE CAST 3 /lpf; URINE MUCUS RARE
[2018-09-06] MEDS: chlordiazePOXIDE HCL 25 MG CAPSULE PO SCH ×4 (05:18→22:13)
[2018-09-06] MEDS: METHADONE HCL 40 MG DISPERSABLE TABLET PO SCH (07:56)
[2018-09-06] MEDS ORDERED: PATIENT'S OWN MEDICATION (NON-FORMULARY) (Multivitamin [Poly-Vitamin] 1 EACH) PO SCH (10:00)
[2018-09-06 10:06] LABS: HEMATOCRIT 32.9 % (35.4-49); HEMOGLOBIN 10.5 GM/dL (11.7-16.9); MCH 29.1 pg (25.7-33.7); MEAN PLT VOLUME 10.5 fl (7.5-11.1); PLATELET COUNT 75 K/MM3 (134-434); RBC 3.61 M/mm3 (4.00-5.60); RDW 14.8 % (11.9-15.9); WHITE BLOOD COUNT 7.8 K/mm3 (4.0-10.0)
[2018-09-06] MEDS: ASPIRIN 81 MG CHEWABLE TABLETS PO SCH (10:20)
[2018-09-06] MEDS: PRENATAL VITAMINS W/ FOLIC ACID TABLET (FP) PO SCH (10:20)
[2018-09-06] MEDS: LISINOPRIL 20 MG TABLET (FP) PO SCH (10:20)
[2018-09-06] MEDS: ALBUTEROL SO4 8 GM HFA INHALER IH PRN ×2 (10:23→16:32)
[2018-09-06] MEDS: NICOTINE 14 MG/24 HOURS TOPICAL PATCH TD SCH (10:24)
[2018-09-06 10:41] LABS: ALBUMIN 3.5 g/dl (3.4-5.0); ALK PHOS 94 U/L (45-117); ANION GAP 10 MMOL/L (8-16); BILIRUBIN,TOTAL 1.4 mg/dL (0.2-1); BLOOD UREA NITROGEN 12 mg/dL (7-18); CALCIUM 9.2 mg/dL (8.5-10.1); CHLORIDE 94 mmol/L (98-107); CO2 32 mmol/L (21-32); CREATININE 0.7 mg/dL (0.55-1.3); GLUCOSE,RANDOM 67 mg/dL (74-106); POTASSIUM 3.6 mmol/L (3.5-5.1); SGOT/AST 135 U/L (15-37); SGPT/ALT 93 U/L (13-61); SODIUM 135 mmol/L (136-145); TOT PROT 7.6 g/dl (6.4-8.2)
--- NOTE | 2018-09-06 10:48 | PN ---
S CIWA - CIWA Score Nausea/Vomitin-Mild Nausea/No Vomiting Muscle Tremors: 3 Anxiety: 2 Agitation: 0-Normal Activity Paroxysmal Sweats: 2 Orientation: 0-Oriented Tacttile Disturbances: 0-None Auditory Disturbances: 0-None Visual Disturbances: 0-None Headache: 2-Mild CIWA-Ar Total Score: 10 S Progress Note (SOAP) Subjective: PATIENT C/O SHAKES, MILD HEADACHE AND SWEATS. Objective: 09/06/18 10:46 Vital Signs Temperature 98.5 F 09/06/18 10:10 Pulse Rate 73 09/06/18 10:10 Respiratory Rate 18 09/06/18 10:10 Blood Pressure 118/65 09/06/18 10:10 O2 Sat by Pulse Oximetry (%) Laboratory Tests 09/05/18 09/05/18 09/06/18 21:03 23:00 05:19 WBC RBC Hgb Hct MCV MCH MCHC RDW Plt Count MPV Sodium Potassium Chloride Carbon Dioxide Anion Gap BUN Creatinine Creat Clearance w eGFR POC Glucometer 251 94 Random Glucose Calcium Total Bilirubin AST ALT Alkaline Phosphatase Ammonia Total Protein Albumin Urine Color Malorie Urine Appearance Cloudy Urine pH 5.0 Ur Specific [place] 1.025 Urine Protein 2+ H Urine Glucose (UA) 3+ H Urine Ketones 1+ H Urine Blood Negative Urine Nitrite Negative Urine Bilirubin Negative Urine Urobilinogen 4.0 e.u/dl Ur Leukocyte Esterase Negative Urine WBC (Auto) <1 Urine RBC (Auto) 1 Ur Epithelial Cells Rare Hyaline Casts 3 Urine Mucus Rare 09/06/18 09/06/18 09/06/18 07:00 07:00 07:00 WBC 7.8 RBC 3.61 L Hgb 10.5 L Hct 32.9 L MCV 91.0 MCH 29.1 MCHC 32.0 RDW 14.8 Plt Count 75 L D MPV 10.5 Sodium 135 L Potassium 3.6 Chloride 94 L Carbon Dioxide 32 Anion Gap 10 BUN 12 Creatinine 0.7 Creat Clearance w eGFR > 60 POC Glucometer Random Glucose 67 L Calcium 9.2 Total Bilirubin 1.4 H AST 135 H ALT 93 H Alkaline Phosphatase 94 Ammonia 103.27 H Total Protein 7.6 Albumin 3.5 Urine Color Urine Appearance Urine pH Ur Specific [place] Urine Protein Urine Glucose (UA) Urine Ketones Urine Blood Urine Nitrite Urine Bilirubin Urine Urobilinogen Ur Leukocyte Esterase Urine WBC (Auto) Urine RBC (Auto) Ur Epithelial Cells Hyaline Casts Urine Mucus SKIN WARM AND MOIST CAR S1S2 RESP CTA BL GI SOFT,BS+, NT EXT FULL ROM NEURO ALERT AND ORIENTED X 3 Assessment: 09/06/18 10:47 WITHDRAWAL SYNDROME ELEVATED AMMONIA LEVEL Plan: CONTINUE DETOX ORDERED ENCOURAGE ORAL FLUIDS LACTULOSE 20G TID REPEAT AMMONIA LEVEL 09/08/18 REPEAT UA CONTINUE TO MONITOR
--- NOTE | 2018-09-06 11:14 | CONSULT ---
[facility] Psychiatric Consult - Data Date of interview: 09/06/18 Admission source: [facility] Identifying data: Patient is a 57 year old single male, father of three, unemployed, domiciled, and is supported by public assistance. This is one of multiple admissions for patient. Patient admitted to for alcohol dependence. Substance Abuse History: Smoking Cessation. Smoking history: Current some day smoker. Have you smoked in the past 12 months: Yes. Aproximately how many cigarettes per day: 7. Hx Chewing Tobacco Use: No. Initiated information on smoking cessation: Yes. 'Breaking Loose' booklet given: 09/05/18. - Substance & Tx. History. Hx Alcohol Use: Yes. Hx Substance Use: Yes. Substance Use Type : Alcohol, Marijuana. Hx Substance Use Treatment: Yes (Last detox & Rehab [facility] 06/10/18 - 06/28/18.). - Substances Abused. Alcohol. Route: Oral. Frequency: Daily. Amount used: FIFTH OF VODKA. Age of first use: 14. Date of Last Use: 09/05/18. Marijuana/Hashish. Route: Smoking. Frequency: 1-2 times per week. Amount used: 1 JOINT. Age of first use: 14. Date of Last Use : 08/29/18 Medical History: Asthma, hypertension, diabetes, Hep C, abdomial hernia repair. Psychiatric History: Patient reports one psychiatric hospitalization at [facility] in the for depression. Patient denies current Outpatient psychiatric care. He reports being prescribed trazodone 150mg by his primary care physician. States he has also taken paxil in the past (several years ago). Patient is currently on methadone maintence 80mg daily. Patient denies h/o suicide attempt. Patient currently reports poor sleep. Physical/Sexual Abuse/Trauma History: denies. Mental Status Exam - Mental Status Exam Alert and Oriented to: Time, Place, Person Cognitive Function: Good Patient Appearance: Well Groomed Mood: Euthymic Affect: Mood Congruent Patient Behavior: Appropriate, Cooperative Speech Pattern: Appropriate Voice Loudness: Normal Thought Process: Intact, Goal Oriented Thought Disorder: Not Present Hallucinations: Denies Suicidal Ideation: Denies Homicidal Ideation: Denies Insight/Judgement: Poor Sleep: Poorly Appetite: Fair Muscle strength/Tone: Normal Gait/Station: Other (Patient uses a cane to ambulate.) Psychiatric Findings - Problem List ([place] 1, 2,3) (1) Alcohol dependence with withdrawal Current Visit: Yes Status: Acute Qualifiers: Complication of substance-induced condition: uncomplicated Qualified Code(s ): F10.230 - Alcohol dependence with withdrawal, uncomplicated (2) Opioid dependence on agonist therapy Current Visit: Yes Status: Chronic (3) Alcohol-induced mood disorder Current Visit: Yes Status: Acute (4) Alcohol-induced sleep disorder Current Visit: Yes Status: Acute (5) Nicotine dependence Current Visit: Yes Status: Chronic Qualifiers: Nicotine product type: cigarettes Substance use status: uncomplicated Qualified Code(s): F17.210 - Nicotine dependence, cigarettes, uncomplicated - Initial Treatment Plan Initial Treatment Plan: Psychoeducation provided. Detoxification in progress. Trazodone 100mg ordered. Benefits and side effects discussed. Patient made aware of the risk of priapism when accepting trazodone. Verbal consent given.
[2018-09-06] MEDS ORDERED: FLU VACCINE QUAD 60 MCG/0.5 ML (MDV 18-19) IM ONE (12:00)
--- NOTE | 2018-09-06 12:14 | EKG ---
Test Reason : Blood Pressure : / mmHG Vent. Rate : 072 BPM Atrial Rate : 072 BPM P-R Int : 124 ms QRS Dur : 090 ms QT Int : 408 ms P-R-T Axes : 071 052 073 degrees QTc Int : 446 ms NORMAL SINUS RHYTHM NORMAL ECG WHEN COMPARED WITH ECG OF 11-JUN-2018 14:24, NO SIGNIFICANT CHANGE WAS FOUND Confirmed by ZAHRA KIRBY MD ([id number]) on 09/06/2018 12:14:06 PM Referred By: Confirmed By:ZAHRA KIRBY MD
[2018-09-06] MEDS: LACTULOSE 20 GM/30 ML UDC (FOR ORAL USE ONLY) PO SCH ×2 (13:15→22:13)
[2018-09-06] MEDS: IBUPROFEN 400 MG TABLET (FP) PO PRN (13:27)
[2018-09-06 18:24] LABS: URINE APPEARANCE CLEAR; URINE BILIRUBIN NEGATIVE (<2.0 mg/dL); URINE COLOR YELLOW; URINE GLUCOSE (UA) 3+ (NEGATIVE); URINE KETONE NEGATIVE (NEGATIVE); URINE LEUK ESTERASE TRACE (NEGATIVE); URINE NITRITE NEGATIVE (NEGATIVE); URINE PROTEIN NEGATIVE (NEGATIVE); URINE UROBILINOGEN 4.0 E.U/dl mg/dL (0.2-1.0)
[2018-09-06 18:40] LABS: EPI CELLS RARE /HPF (FEW); URINE MUCUS RARE
[2018-09-06] MEDS: MELATONIN 5 MG TABLETS PO PRN (22:13)
[2018-09-06] MEDS: traZODone HCL 100 MG TABLET (FP) PO SCH (22:13)
[2018-09-06] MEDS: THIAMINE HCL 100 MG TABLET (FP) PO SCH (22:13)
[2018-09-06] MEDS: ATORVASTATIN CA 10 MG TABLET (FP) PO SCH (22:13)
[2018-09-06] MEDS: INSULIN (LEVEMIR) 100 UNITS/ML UNITS SQ SCH (22:16)
[2018-09-07] MEDS: METHADONE HCL 40 MG DISPERSABLE TABLET PO SCH (05:39)
[2018-09-07] MEDS: chlordiazePOXIDE HCL 25 MG CAPSULE PO SCH ×3 (05:39→17:27)
[2018-09-07] MEDS: LACTULOSE 20 GM/30 ML UDC (FOR ORAL USE ONLY) PO SCH ×3 (05:39→22:20)
[2018-09-07] MEDS: LISINOPRIL 20 MG TABLET (FP) PO SCH (10:17)
[2018-09-07] MEDS: ASPIRIN 81 MG CHEWABLE TABLETS PO SCH (10:17)
[2018-09-07] MEDS: NICOTINE 14 MG/24 HOURS TOPICAL PATCH TD SCH (10:18)
[2018-09-07] MEDS: ALBUTEROL SO4 8 GM HFA INHALER IH PRN ×2 (10:18→22:24)
[2018-09-07] MEDS: PRENATAL VITAMINS W/ FOLIC ACID TABLET (FP) PO SCH (10:18)
[2018-09-07] MEDS: IBUPROFEN 400 MG TABLET (FP) PO PRN ×2 (10:20→22:19)
--- NOTE | 2018-09-07 12:56 | PN ---
[facility] CIWA - CIWA Score Nausea/Vomitin-Mild Nausea/No Vomiting Muscle Tremors: 2 Anxiety: 1-Mildly Anxious Agitation: 1-Slight > Activity Paroxysmal Sweats: 2 Orientation: 0-Oriented Tacttile Disturbances: 3-Moderate Itch/Numb/Burn Auditory Disturbances: 0-None Visual Disturbances: 0-None Headache: 0-None Present CIWA-Ar Total Score: 10 BHS Progress Note (SOAP) Subjective: PATIENT PRESENTS WITH MILD NAUSEA, SWEATING, ANXIETY AND SHAKES. Objective: 09/07/18 12:52 Vital Signs Temperature 98.5 F 09/07/18 10:23 Pulse Rate 73 09/07/18 10:23 Respiratory Rate 18 09/07/18 10:23 Blood Pressure 112/66 09/07/18 10:23 O2 Sat by Pulse Oximetry (%) Laboratory Tests 09/05/18 09/05/18 09/05/18 17:01 21:03 23:00 WBC RBC Hgb Hct MCV MCH MCHC RDW Plt Count MPV Sodium Potassium Chloride Carbon Dioxide Anion Gap BUN Creatinine Creat Clearance w eGFR POC Glucometer 234 251 Random Glucose Calcium Total Bilirubin AST ALT Alkaline Phosphatase Ammonia Total Protein Albumin Urine Color Malorie Urine Appearance Cloudy Urine pH 5.0 Ur Specific [place] 1.025 Urine Protein 2+ H Urine Glucose (UA) 3+ H Urine Ketones 1+ H Urine Blood Negative Urine Nitrite Negative Urine Bilirubin Negative Urine Urobilinogen 4.0 e.u/dl Ur Leukocyte Esterase Negative Urine WBC (Auto) <1 Urine RBC (Auto) 1 Ur Epithelial Cells Rare Hyaline Casts 3 Urine Mucus Rare RPR Titer 09/06/18 09/06/18 09/06/18 05:19 07:00 07:00 WBC 7.8 RBC 3.61 L Hgb 10.5 L Hct 32.9 L MCV 91.0 MCH 29.1 MCHC 32.0 RDW 14.8 Plt Count 75 L D MPV 10.5 Sodium 135 L Potassium 3.6 Chloride 94 L Carbon Dioxide 32 Anion Gap 10 BUN 12 Creatinine 0.7 Creat Clearance w eGFR > 60 POC Glucometer 94 Random Glucose 67 L Calcium 9.2 Total Bilirubin 1.4 H AST 135 H ALT 93 H Alkaline Phosphatase 94 Ammonia Total Protein 7.6 Albumin 3.5 Urine Color Urine Appearance Urine pH Ur Specific [place] Urine Protein Urine Glucose (UA) Urine Ketones Urine Blood Urine Nitrite Urine Bilirubin Urine Urobilinogen Ur Leukocyte Esterase Urine WBC (Auto) Urine RBC (Auto) Ur Epithelial Cells Hyaline Casts Urine Mucus RPR Titer 09/06/18 09/06/18 09/06/18 07:00 07:00 11:28 WBC RBC Hgb Hct MCV MCH MCHC RDW Plt Count MPV Sodium Potassium Chloride Carbon Dioxide Anion Gap BUN Creatinine Creat Clearance w eGFR POC Glucometer 79 Random Glucose Calcium Total Bilirubin AST ALT Alkaline Phosphatase Ammonia 103.27 H Total Protein Albumin Urine Color Urine Appearance Urine pH Ur Specific [place] Urine Protein Urine Glucose (UA) Urine Ketones Urine Blood Urine Nitrite Urine Bilirubin Urine Urobilinogen Ur Leukocyte Esterase Urine WBC (Auto) Urine RBC (Auto) Ur Epithelial Cells Hyaline Casts Urine Mucus RPR Titer Nonreactive 09/06/18 09/06/18 09/06/18 14:15 16:13 21:33 WBC RBC Hgb Hct MCV MCH MCHC RDW Plt Count MPV Sodium Potassium Chloride Carbon Dioxide Anion Gap BUN Creatinine Creat Clearance w eGFR POC Glucometer 238 299 Random Glucose Calcium Total Bilirubin AST ALT Alkaline Phosphatase Ammonia Total Protein Albumin Urine Color Yellow Urine Appearance Clear Urine pH 6.0 Ur Specific [place] 1.007 L Urine Protein Negative Urine Glucose (UA) 3+ H Urine Ketones Negative Urine Blood Negative Urine Nitrite Negative Urine Bilirubin Negative Urine Urobilinogen 4.0 e.u/dl Ur Leukocyte Esterase Trace Urine WBC (Auto) 1 Urine RBC (Auto) <1 Ur Epithelial Cells Rare Hyaline Casts Urine Mucus Rare RPR Titer 09/07/18 09/07/18 05:38 11:16 WBC RBC Hgb Hct MCV MCH MCHC RDW Plt Count MPV Sodium Potassium Chloride Carbon Dioxide Anion Gap BUN Creatinine Creat Clearance w eGFR POC Glucometer 193 101 Random Glucose Calcium Total Bilirubin AST ALT Alkaline Phosphatase Ammonia Total Protein Albumin Urine Color Urine Appearance Urine pH Ur Specific [place] Urine Protein Urine Glucose (UA) Urine Ketones Urine Blood Urine Nitrite Urine Bilirubin Urine Urobilinogen Ur Leukocyte Esterase Urine WBC (Auto) Urine RBC (Auto) Ur Epithelial Cells Hyaline Casts Urine Mucus RPR Titer SKIN WARM AND MOIST ALERT AND ORIENTED X 3 CAR S1S2 RESP +WHEEZES R/L UPPER LOBES EXT +MILD TREMORS NEURO +PERRLA Assessment: 09/07/18 12:56 WITHDRAWAL SYNDROME Plan: CONTINUE DETOX ORAL FLUIDS ENCOURAGED CONTINUE TO MONITOR CLINICALLY
[2018-09-07] MEDS: chlordiazePOXIDE 5 MG CAPSULE PO SCH (22:20)
[2018-09-07] MEDS: ATORVASTATIN CA 10 MG TABLET (FP) PO SCH (22:20)
[2018-09-07] MEDS: traZODone HCL 100 MG TABLET (FP) PO SCH (22:20)
[2018-09-07] MEDS: INSULIN (LEVEMIR) 100 UNITS/ML UNITS SQ SCH (22:20)
[2018-09-07] MEDS: THIAMINE HCL 100 MG TABLET (FP) PO SCH (22:20)
[2018-09-07] MEDS: MELATONIN 5 MG TABLETS PO PRN (22:22)
[2018-09-08] MEDS: LACTULOSE 20 GM/30 ML UDC (FOR ORAL USE ONLY) PO SCH ×3 (05:13→22:00)
[2018-09-08] MEDS: METHADONE HCL 40 MG DISPERSABLE TABLET PO SCH (05:13)
[2018-09-08] MEDS: chlordiazePOXIDE 5 MG CAPSULE PO SCH ×3 (05:13→17:23)
[2018-09-08] MEDS: IBUPROFEN 400 MG TABLET (FP) PO PRN ×2 (05:21→17:25)
[2018-09-08] MEDS: LISINOPRIL 20 MG TABLET (FP) PO SCH (10:21)
[2018-09-08] MEDS: ASPIRIN 81 MG CHEWABLE TABLETS PO SCH (10:21)
[2018-09-08] MEDS: NICOTINE 14 MG/24 HOURS TOPICAL PATCH TD SCH (10:22)
[2018-09-08] MEDS: PRENATAL VITAMINS W/ FOLIC ACID TABLET (FP) PO SCH (10:22)
--- NOTE | 2018-09-08 13:56 | PN ---
S Progress Note (SOAP) Subjective: alert,interrupted sleep,pain in the body Objective: 09/08/18 13:54 Vital Signs Temperature 98.9 F 09/08/18 10:47 Pulse Rate 88 09/08/18 10:47 Respiratory Rate 20 09/08/18 10:47 Blood Pressure 126/75 09/08/18 10:47 O2 Sat by Pulse Oximetry (%) Assessment: 09/08/18 13:54 withdrawal symptom Plan: continue detox,on lactulose 20 gram po tid of elevation on ammonia 78.80,repeat ammonia level in am
[2018-09-08] MEDS: INSULIN SLIDING SCALE (NOVOLOG) 1 VIAL SQ SCH (21:49)
[2018-09-08] MEDS: traZODone HCL 100 MG TABLET (FP) PO SCH (21:53)
[2018-09-08] MEDS: DOCUSATE SODIUM 100 MG CAPSULE (FP) PO PRN (21:53)
[2018-09-08] MEDS: THIAMINE HCL 100 MG TABLET (FP) PO SCH (21:53)
[2018-09-08] MEDS: ATORVASTATIN CA 10 MG TABLET (FP) PO SCH (21:53)
[2018-09-08] MEDS ORDERED: INSULIN (NOVOLOG) ASPART 100 UNITS/ML 10ML VIAL ONE (21:57)
[2018-09-08] MEDS: chlordiazePOXIDE HCL 10 MG CAPSULE PO SCH (22:00)
[2018-09-08] MEDS: INSULIN (LEVEMIR) 100 UNITS/ML UNITS SQ SCH (22:00)
[2018-09-08] MEDS: MELATONIN 5 MG TABLETS PO PRN (22:19)
[2018-09-09] MEDS: INSULIN SLIDING SCALE (NOVOLOG) 1 VIAL SQ SCH ×5 (04:00→21:53)
[2018-09-09] MEDS: chlordiazePOXIDE HCL 10 MG CAPSULE PO SCH ×3 (05:29→17:40)
[2018-09-09] MEDS: METHADONE HCL 40 MG DISPERSABLE TABLET PO SCH (05:29)
[2018-09-09] MEDS: LACTULOSE 20 GM/30 ML UDC (FOR ORAL USE ONLY) PO SCH ×4 (05:29→21:53)
[2018-09-09] MEDS: IBUPROFEN 400 MG TABLET (FP) PO PRN (05:30)
[2018-09-09] MEDS ORDERED: INSULIN (NOVOLOG) ASPART 100 UNITS/ML 10ML VIAL ONE ×2 (05:32→16:43)
[2018-09-09] MEDS: LISINOPRIL 20 MG TABLET (FP) PO SCH (10:25)
[2018-09-09] MEDS: PRENATAL VITAMINS W/ FOLIC ACID TABLET (FP) PO SCH (10:25)
[2018-09-09] MEDS: NICOTINE 14 MG/24 HOURS TOPICAL PATCH TD SCH (10:25)
[2018-09-09] MEDS: ASPIRIN 81 MG CHEWABLE TABLETS PO SCH (10:25)
--- NOTE | 2018-09-09 14:00 | PN ---
BHS Progress Note (SOAP) Subjective: Nausea, tremor, chills, interrupted sleep Objective: 09/09/18 13:56 Last Vital Signs Temp Pulse Resp BP Pulse Ox 97.3 F L 72 18 101/62 09/09/18 09:31 09/09/18 09:31 09/09/18 09:31 09/09/18 09:31 Laboratory Tests 09/05/18 09/05/18 09/05/18 17:01 21:03 23:00 WBC RBC Hgb Hct MCV MCH MCHC RDW Plt Count MPV Sodium Potassium Chloride Carbon Dioxide Anion Gap BUN Creatinine Creat Clearance w eGFR POC Glucometer 234 251 Random Glucose Calcium Total Bilirubin AST ALT Alkaline Phosphatase Ammonia Total Protein Albumin Urine Color Malorie Urine Appearance Cloudy Urine pH 5.0 Ur Specific [place] 1.025 Urine Protein 2+ H Urine Glucose (UA) 3+ H Urine Ketones 1+ H Urine Blood Negative Urine Nitrite Negative Urine Bilirubin Negative Urine Urobilinogen 4.0 e.u/dl Ur Leukocyte Esterase Negative Urine WBC (Auto) <1 Urine RBC (Auto) 1 Ur Epithelial Cells Rare Hyaline Casts 3 Urine Mucus Rare RPR Titer 09/06/18 09/06/18 09/06/18 05:19 07:00 07:00 WBC 7.8 RBC 3.61 L Hgb 10.5 L Hct 32.9 L MCV 91.0 MCH 29.1 MCHC 32.0 RDW 14.8 Plt Count 75 L D MPV 10.5 Sodium 135 L Potassium 3.6 Chloride 94 L Carbon Dioxide 32 Anion Gap 10 BUN 12 Creatinine 0.7 Creat Clearance w eGFR > 60 POC Glucometer 94 Random Glucose 67 L Calcium 9.2 Total Bilirubin 1.4 H AST 135 H ALT 93 H Alkaline Phosphatase 94 Ammonia Total Protein 7.6 Albumin 3.5 Urine Color Urine Appearance Urine pH Ur Specific [place] Urine Protein Urine Glucose (UA) Urine Ketones Urine Blood Urine Nitrite Urine Bilirubin Urine Urobilinogen Ur Leukocyte Esterase Urine WBC (Auto) Urine RBC (Auto) Ur Epithelial Cells Hyaline Casts Urine Mucus RPR Titer 09/06/18 09/06/18 09/06/18 07:00 07:00 11:28 WBC RBC Hgb Hct MCV MCH MCHC RDW Plt Count MPV Sodium Potassium Chloride Carbon Dioxide Anion Gap BUN Creatinine Creat Clearance w eGFR POC Glucometer 79 Random Glucose Calcium Total Bilirubin AST ALT Alkaline Phosphatase Ammonia 103.27 H Total Protein Albumin Urine Color Urine Appearance Urine pH Ur Specific [place] Urine Protein Urine Glucose (UA) Urine Ketones Urine Blood Urine Nitrite Urine Bilirubin Urine Urobilinogen Ur Leukocyte Esterase Urine WBC (Auto) Urine RBC (Auto) Ur Epithelial Cells Hyaline Casts Urine Mucus RPR Titer Nonreactive 09/06/18 09/06/18 09/06/18 14:15 16:13 21:33 WBC RBC Hgb Hct MCV MCH MCHC RDW Plt Count MPV Sodium Potassium Chloride Carbon Dioxide Anion Gap BUN Creatinine Creat Clearance w eGFR POC Glucometer 238 299 Random Glucose Calcium Total Bilirubin AST ALT Alkaline Phosphatase Ammonia Total Protein Albumin Urine Color Yellow Urine Appearance Clear Urine pH 6.0 Ur Specific [place] 1.007 L Urine Protein Negative Urine Glucose (UA) 3+ H Urine Ketones Negative Urine Blood Negative Urine Nitrite Negative Urine Bilirubin Negative Urine Urobilinogen 4.0 e.u/dl Ur Leukocyte Esterase Trace Urine WBC (Auto) 1 Urine RBC (Auto) <1 Ur Epithelial Cells Rare Hyaline Casts Urine Mucus Rare RPR Titer 09/07/18 09/07/18 09/07/18 05:38 11:16 16:25 WBC RBC Hgb Hct MCV MCH MCHC RDW Plt Count MPV Sodium Potassium Chloride Carbon Dioxide Anion Gap BUN Creatinine Creat Clearance w eGFR POC Glucometer 193 101 363 Random Glucose Calcium Total Bilirubin AST ALT Alkaline Phosphatase Ammonia Total Protein Albumin Urine Color Urine Appearance Urine pH Ur Specific [place] Urine Protein Urine Glucose (UA) Urine Ketones Urine Blood Urine Nitrite Urine Bilirubin Urine Urobilinogen Ur Leukocyte Esterase Urine WBC (Auto) Urine RBC (Auto) Ur Epithelial Cells Hyaline Casts Urine Mucus RPR Titer 09/08/18 09/08/18 09/08/18 05:12 08:00 16:12 WBC RBC Hgb Hct MCV MCH MCHC RDW Plt Count MPV Sodium Potassium Chloride Carbon Dioxide Anion Gap BUN Creatinine Creat Clearance w eGFR POC Glucometer 262 282 Random Glucose Calcium Total Bilirubin AST ALT Alkaline Phosphatase Ammonia 78.80 H Total Protein Albumin Urine Color Urine Appearance Urine pH Ur Specific [place] Urine Protein Urine Glucose (UA) Urine Ketones Urine Blood Urine Nitrite Urine Bilirubin Urine Urobilinogen Ur Leukocyte Esterase Urine WBC (Auto) Urine RBC (Auto) Ur Epithelial Cells Hyaline Casts Urine Mucus RPR Titer 09/08/18 09/08/18 09/09/18 20:27 21:04 05:22 WBC RBC Hgb Hct MCV MCH MCHC RDW Plt Count MPV Sodium Potassium Chloride Carbon Dioxide Anion Gap BUN Creatinine Creat Clearance w eGFR POC Glucometer 386 373 197 Random Glucose Calcium Total Bilirubin AST ALT Alkaline Phosphatase Ammonia Total Protein Albumin Urine Color Urine Appearance Urine pH Ur Specific [place] Urine Protein Urine Glucose (UA) Urine Ketones Urine Blood Urine Nitrite Urine Bilirubin Urine Urobilinogen Ur Leukocyte Esterase Urine WBC (Auto) Urine RBC (Auto) Ur Epithelial Cells Hyaline Casts Urine Mucus RPR Titer 09/09/18 07:30 WBC RBC Hgb Hct MCV MCH MCHC RDW Plt Count MPV Sodium Potassium Chloride Carbon Dioxide Anion Gap BUN Creatinine Creat Clearance w eGFR POC Glucometer Random Glucose Calcium Total Bilirubin AST ALT Alkaline Phosphatase Ammonia 90.48 H Total Protein Albumin Urine Color Urine Appearance Urine pH Ur Specific [place] Urine Protein Urine Glucose (UA) Urine Ketones Urine Blood Urine Nitrite Urine Bilirubin Urine Urobilinogen Ur Leukocyte Esterase Urine WBC (Auto) Urine RBC (Auto) Ur Epithelial Cells Hyaline Casts Urine Mucus RPR Titer Labs reviewed: ammonia level 90.48 (was 78.80) Assessment: 09/09/18 13:58 Withdrawal sxs Noted with elevated ammonia level; noted with hyperglycemia due to DMT2 Plan: Continue detox Hyperammonemia: increase lactulose to QID, repeat ammonia level in AM, encouraged PO water intake Hyperglycemia r/t DMT2: continue present regimen
[2018-09-09] MEDS: ALBUTEROL SO4 8 GM HFA INHALER IH PRN (20:12)
[2018-09-09] MEDS: INSULIN (LEVEMIR) 100 UNITS/ML UNITS SQ SCH (21:49)
[2018-09-09] MEDS: THIAMINE HCL 100 MG TABLET (FP) PO SCH (21:49)
[2018-09-09] MEDS: traZODone HCL 100 MG TABLET (FP) PO SCH (21:49)
[2018-09-09] MEDS: ATORVASTATIN CA 10 MG TABLET (FP) PO SCH (21:49)
[2018-09-09] MEDS: DOCUSATE SODIUM 100 MG CAPSULE (FP) PO PRN (21:49)
[2018-09-09] MEDS: MELATONIN 5 MG TABLETS PO PRN (21:50)
[2018-09-10] MEDS: METHADONE HCL 40 MG DISPERSABLE TABLET PO SCH (05:10)
[2018-09-10] MEDS ORDERED: INSULIN (NOVOLOG) ASPART 100 UNITS/ML 10ML VIAL ONE (07:57)
[2018-09-10] MEDS: INSULIN SLIDING SCALE (NOVOLOG) 1 VIAL SQ SCH ×2 (08:00→11:41)
--- NOTE | 2018-09-10 08:55 | DS ---
[facility] Detox Discharge Summary Admission Date: 09/05/18 Discharge Date: 09/10/18 - History Present History: Alcohol Dependence Additional Comments: Patient medically stable. Patient to follow up with primary medical provider in a week. If worsening symptoms patient to seek medical attention. - Physical Exam Results Vital Signs: Vital Signs Temperature 98.5 F 09/10/18 05:59 Pulse Rate 73 09/10/18 05:59 Respiratory Rate 18 09/10/18 05:59 Blood Pressure 130/87 09/10/18 05:59 O2 Sat by Pulse Oximetry (%) Pertinent Admission Physical Exam Findings: Vital Signs Temperature 97.0 F L 09/10/18 09:13 Pulse Rate 86 09/10/18 09:13 Respiratory Rate 18 09/10/18 09:13 Blood Pressure 143/79 09/10/18 09:13 O2 Sat by Pulse Oximetry (%) Laboratory Last Values WBC 7.8 K/mm3 (4.0-10.0) 09/06/18 07:00 RBC 3.61 M/mm3 (4.00-5.60) L 09/06/18 07:00 Hgb 10.5 GM/dL (11.7-16.9) L 09/06/18 07:00 Hct 32.9 % (35.4-49) L 09/06/18 07:00 MCV 91.0 fl (80-96) 09/06/18 07:00 MCH 29.1 pg (25.7-33.7) 09/06/18 07:00 MCHC 32.0 g/dl (32.0-35.9) 09/06/18 07:00 RDW 14.8 % (11.9-15.9) 09/06/18 07:00 Plt Count 75 K/MM3 (134-434) L D 09/06/18 07:00 MPV 10.5 fl (7.5-11.1) 09/06/18 07:00 Sodium 135 mmol/L (136-145) L 09/06/18 07:00 Potassium 3.6 mmol/L (3.5-5.1) 09/06/18 07:00 Chloride 94 mmol/L (98-107) L 09/06/18 07:00 Carbon Dioxide 32 mmol/L (21-32) 09/06/18 07:00 Anion Gap 10 MMOL/L (8-16) 09/06/18 07:00 BUN 12 mg/dL (7-18) 09/06/18 07:00 Creatinine 0.7 mg/dL (0.55-1.3) 09/06/18 07:00 Creat Clearance w eGFR > 60 (>60) 09/06/18 07:00 POC Glucometer 110 UNITS (80-120) 09/10/18 11:41 Random Glucose 67 mg/dL (74-106) L 09/06/18 07:00 Calcium 9.2 mg/dL (8.5-10.1) 09/06/18 07:00 Total Bilirubin 1.4 mg/dL (0.2-1) H 09/06/18 07:00 AST 135 U/L (15-37) H 09/06/18 07:00 ALT 93 U/L (13-61) H 09/06/18 07:00 Alkaline Phosphatase 94 U/L (45-117) 09/06/18 07:00 Ammonia 47.14 umol/L (11-32) H 09/10/18 09:10 Total Protein 7.6 g/dl (6.4-8.2) 09/06/18 07:00 Albumin 3.5 g/dl (3.4-5.0) 09/06/18 07:00 Urine Color Yellow 09/06/18 14:15 Urine Appearance Clear 09/06/18 14:15 Urine pH 6.0 (5.0-8.0) 09/06/18 14:15 Ur Specific [place] 1.007 (1.010-1.035) L 09/06/18 14:15 Urine Protein Negative (NEGATIVE) 09/06/18 14:15 Urine Glucose (UA) 3+ (NEGATIVE) H 09/06/18 14:15 Urine Ketones Negative (NEGATIVE) 09/06/18 14:15 Urine Blood Negative (NEGATIVE) 09/06/18 14:15 Urine Nitrite Negative (NEGATIVE) 09/06/18 14:15 Urine Bilirubin Negative (<2.0 mg/dL) 09/06/18 14:15 Urine Urobilinogen 4.0 e.u/dl mg/dL (0.2-1.0) 09/06/18 14:15 Ur Leukocyte Esterase Trace (NEGATIVE) 09/06/18 14:15 Urine WBC (Auto) 1 /hpf (3-5) 09/06/18 14:15 Urine RBC (Auto) <1 /hpf (0-3) 09/06/18 14:15 Ur Epithelial Cells Rare /HPF (FEW) 09/06/18 14:15 Hyaline Casts 3 /lpf 09/05/18 23:00 Urine Mucus Rare 09/06/18 14:15 RPR Titer Nonreactive (NONREACTIVE) 09/06/18 07:00 - Treatment Hospital Course: Detox Protocol Followed, Detoxed Safely, Responded well, Discharged Condition Good, Rehab Referral Accepted Patient has Accepted a Rehab Referral to: [facility] - Medication Discharge Medications: Ambulatory Orders Insulin Glargine,Hum.rec.anlog [Lantus (10mL VIAL) -] 35 units SQ HS 09/28/15 Thiamine HCl [Vitamin B1 -] 100 mg PO HS #30 tablet 10/02/15 traZODone HCL [Desyrel -] 150 mg PO HS #30 tablet 06/11/18 Albuterol Sulfate Inhaler - [Ventolin HFA Inhaler -] 2 puff IH Q4H PRN #1 inhaler 06/27/18 Atorvastatin Ca [Lipitor] 10 mg PO HS #30 tablet 06/27/18 Losartan Potassium [Cozaar -] 50 mg PO DAILY #30 tablet 06/27/18 Docusate Sodium [Dok] 100 mg PO HS PRN 09/05/18 Lisinopril [Prinivil] 40 mg PO DAILY 09/05/18 Multivitamin [Poly-Vitamin] 1 each PO DAILY 09/05/18 Aspirin [ASA -] 81 mg PO DAILY #30 tab.chew 09/10/18 Lactulose (Oral Use) [Cephulac -] 20 gm PO TID #1 udc 09/10/18 - Diagnosis (1) Hepatitis C Current Visit: Yes Status: Chronic Qualifiers: Viral hepatitis chronicity: chronic (2) Alcohol dependence with withdrawal Current Visit: Yes Status: Acute Qualifiers: Complication of substance-induced condition: uncomplicated Qualified Code(s ): F10.230 - Alcohol dependence with withdrawal, uncomplicated (3) Nausea and vomiting Current Visit: Yes Status: Acute Qualifiers: Vomiting type: unspecified Vomiting Intractability: unspecified Qualified Code(s): R11.2 - Nausea with vomiting, unspecified (4) Asthma Current Visit: Yes Status: Chronic Qualifiers: Asthma severity: mild Asthma persistence: intermittent Asthma complication type: unspecified Qualified Code(s): J45.20 - Mild intermittent asthma, uncomplicated (5) Diabetes mellitus type 2 in obese Current Visit: Yes Status: Chronic (6) GERD (gastroesophageal reflux disease) Current Visit: Yes Status: Chronic Qualifiers: Esophagitis presence: esophagitis presence not specified Qualified Code(s) : K21.9 - Gastro-esophageal reflux disease without esophagitis (7) HTN (hypertension) Current Visit: Yes Status: Chronic Qualifiers: Hypertension type: essential hypertension Qualified Code(s): I10 - Essential (primary) hypertension (8) Nicotine dependence Current Visit: Yes Status: Chronic Qualifiers: Nicotine product type: cigarettes Substance use status: uncomplicated Qualified Code(s): F17.210 - Nicotine dependence, cigarettes, uncomplicated (9) Opioid dependence on agonist therapy Current Visit: Yes Status: Chronic (10) Type 2 diabetes mellitus with hyperglycemia Current Visit: Yes Status: Chronic Qualifiers: Diabetes mellitus senior living insulin use: with senior living use Qualified Code( s): E11.65 - Type 2 diabetes mellitus with hyperglycemia; Z79.4 - equipment [employer] ( current) use of insulin (11) Hypercholesteremia Current Visit: Yes Status: Chronic (12) Methadone maintenance therapy patient Current Visit: Yes Status: Chronic - AMA Did Patient Leave Against Medical Advice: No
[2018-09-10 09:14] VITALS: BP 143/79; PULSE 86; TEMP 97
[2018-09-10] MEDS: LISINOPRIL 20 MG TABLET (FP) PO SCH (10:24)
[2018-09-10] MEDS: NICOTINE 14 MG/24 HOURS TOPICAL PATCH TD SCH (10:24)
[2018-09-10] MEDS: ASPIRIN 81 MG CHEWABLE TABLETS PO SCH (10:24)
[2018-09-10] MEDS: PRENATAL VITAMINS W/ FOLIC ACID TABLET (FP) PO SCH (10:24)
[2018-09-10] MEDS: LACTULOSE 20 GM/30 ML UDC (FOR ORAL USE ONLY) PO SCH (10:26)
== END 2018-09-10 12:42 | disposition home or self-care (01) | DRG 773 ==
LOC: YASAS 15:15 → Y3N 17:15
PROC: HZ2ZZZZ Detoxification Services for Substance Abuse Treatment (ICD-10-PCS; principal; 2018-09-05)
DX: F10.230 Alcohol dependence with withdrawal, uncomplicated (principal); F11.20 Opioid dependence, uncomplicated; F17.210 Nicotine dependence, cigarettes, uncomplicated; F10.24 Alcohol dependence with alcohol-induced mood disorder; F10.282 Alcohol dependence with alcohol-induced sleep disorder; I10 Essential (primary) hypertension; J45.20 Mild intermittent asthma, uncomplicated; B18.2 Chronic viral hepatitis C; R79.9 Abnormal finding of blood chemistry, unspecified; R11.2 Nausea with vomiting, unspecified; E11.69 Type 2 diabetes mellitus with other specified complication; E11.65 Type 2 diabetes mellitus with hyperglycemia; K21.9 Gastro-esophageal reflux disease without esophagitis; E78.00 Pure hypercholesterolemia, unspecified; E88.09 Other disorders of plasma-protein metabolism, not elsewhere classified; E72.20 Disorder of urea cycle metabolism, unspecified; E66.9 Obesity, unspecified; Z68.30 Body mass index [BMI] 30.0-30.9, adult
CPT/HCPCS: 36415; 80053; 81003; 81015; 82140; 82962; 85027; 86593; 93005; 93010; J0735; Q0162

== ENCOUNTER 2019-01-11 14:29 | Inpatient (IN) | payer OTHER ==
[2019-01-11 16:02] VITALS: BMI 32.5
--- NOTE | 2019-01-11 19:08 | HP ---
"CIWA Score Nausea/Vomitin Muscle Tremors: 1-None Visible, but [place] Anxiety: 3 Agitation: 3 Paroxysmal Sweats: 2 Orientation: 0-Oriented Tacttile Disturbances: 0-None Auditory Disturbances: 2-Mild Harshness/Frighten Visual Disturbances: 0-None Headache: 2-Mild CIWA-Ar Total Score: 16 - Admission Criteria OASAS Guidelines: Admission for Medically Managed Detox: Requires at least one of the followin. CIWA greater than 12 2. Seizures within the past 24 hours 3. Delirium tremens within the past 24 hours 4. Hallucinations within the past 24 hours 5. Acute intervention needed for co occurring medical disorder 6. Acute intervention needed for co occurring psychiatric disorder 7. Severe withdrawal that cannot be handled at a lower level of care (continued vomiting, continued diarrhea, abnormal vital signs) requiring intravenous medication and/or fluids 8. Patient presents the following: CIWA greater than 12 Admission Criteria Met: Admission criteria met Admission [facility] Allergies/Adverse Reactions: Allergies Allergy/AdvReac Type Severity Reaction Status Date / Time No Known Allergies Allergy Verified 09/05/18 16:39 History of Present Illness: pt here requesting detox from etoh use , reports 1.5 months ago after of brother , reports 2/5 / day , tremors if not drinking , denies seizures , + blackouts , denies falls while intoxicated , latest use this morning . heroin : stopped 25 years ago , on [facility] at [facility] , on 80 mg q d cannabis : occasional use tobacco : 1/2 ppd PMHX : DM 1 , asthma since childhood ( NH / [place] ) , hep C ( dx 20 years ago , tx completed does not recall when ) PSHX : abdominal hernia 2004 PSych : denies meds - see list his report was requested by: Ladi Arevalo | Reference #: [id number] Others' Prescriptions Patient Name: Ronal Bajwa Date: 1960 Address: [place] [address] Sex: Male Rx Written Rx Dispensed Drug Quantity Days Supply Prescriber Name 09/18/2018 09/18/2018 chlordiazepoxide 25 mg capsule 8 2 Benjamin Flood Patient Name: Ronal Bajwa Date: 1960 Address: [address] [place] [address] Sex: Male Rx Written Rx Dispensed Drug Quantity Days Supply Prescriber Name 07/23/2018 07/23/2018 chlordiazepoxide 25 mg capsule 8 2 Gorge Blas (VERENICE) 07/04/2018 07/05/2018 chlordiazepoxide 25 mg capsule 8 2 Benjamin Flood Patient Name: Ronal Bajwa Date: 1960 Address: [address] [place] [address] Sex: Male Rx Written Rx Dispensed Drug Quantity Days Supply Prescriber Name 05/23/2018 05/24/2018 chlordiazepoxide 25 mg capsule 9 5 Sincere Parks Exam Limitations: No Limitations - Ebola screening Have you traveled outside of the country in the last 21 days: No Have you had contact with anyone from an Ebola affected area: No Have you been sick,other than usual withdrawal symptoms: No Do you have a fever: No - Review of Systems Constitutional: See HPI EENT: reports: See HPI, Other (reading glasses , missing teeth , upper and lower dentures - did not bring) Respiratory: reports: See HPI Cardiac: reports: No Symptoms Reported GI: reports: See HPI, Nausea : reports: Other (reports occasional hesitancy) Musculoskeletal: reports: Back Pain Integumentary: reports: No Symptoms Reported Neuro: reports: See HPI Endocrine: reports: See HPI Psychiatric: reports: Orientated x3, Anxious Patient History - Patient Medical History Hx Anemia: No Hx Asthma: Yes (Pt is) Hx Chronic Obstructive Pulmonary Disease (COPD): No Hx Cancer: No Hx Cardiac Disorders: No Hx Congestive Heart Failure: No Hx Hypertension: Yes (on meds.) Hx Hypercholesterolemia: Yes Hx Pacemaker: No HX Cerebrovascular Accident: Yes Hx Seizures: No Hx Dementia: No Hx Diabetes: Yes (Type II) Hx Gastrointestinal Disorders: No Hx Liver Disease: Yes (Hep C ) Hx Genitourinary Disorders: No Hx Sexually Transmitted Disorders: No Hx Renal Disease (ESRD): No Hx Thyroid Disease: No Hx Human Immunodeficiency Virus (HIV): No (declines testing ) Hx Hepatitis C: Yes Hx Depression: Yes Hx Suicide Attempt: No Hx Bipolar Disorder: No Hx Schizophrenia: No - Patient Surgical History Past Surgical History: No Hx Neurologic Surgery: No Hx Cataract Extraction: No Hx Cardiac Surgery: No Hx Lung Surgery: No Hx Breast Surgery: No Hx Breast Biopsy: No Hx Abdominal Surgery: Yes (Abdominal hernia repair) Hx Appendectomy: No Hx Cholecystectomy: No Hx Genitourinary Surgery: No Hx Orthopedic Surgery: No Anesthesia Reaction: No - PPD History Results: positive ppd - Smoking Cessation Smoking history: Current some day smoker Have you smoked in the past 12 months: Yes Aproximately how many cigarettes per day: 7 Hx Chewing Tobacco Use: No Initiated information on smoking cessation: No Family Disease History - Family Disease History Family Disease History: Diabetes: Father (HAD CA. OF THE PROSTATE AND ), Mother (), CA: Father Admission Physical Exam S - Vital Signs Vital Signs: Vital Signs - 24 hr 01/11/19 15:59 Temperature 98.4 F Pulse Rate 83 Respiratory 17 Rate Blood Pressure 154/88 - Physical General Appearance: Yes: Disheveled, Mild Distress, Intoxicated HEENTM: Yes: EOMI, Hearing grossly Normal, Normocephalic, Normal Voice Respiratory: Yes: Chest Non-Tender, Lungs Clear, Decreased Breath Sounds Neck: Yes: No masses,lesions,Nodules, Trachea in good position Cardiology: Yes: Regular Rhythm, Regular Rate, S1, S2 Abdominal: Yes: Normal Bowel Sounds, Non Tender, Soft, Protuberent Genitourinary: Yes: Within Normal Limits Back: Yes: Normal Inspection Musculoskeletal: Yes: full range of Motion, Gait Steady Extremities: Yes: Normal Capillary Refill, Normal Range of Motion, Non-Tender Neurological: Yes: Motor Strength 5/5, Normal Mood/Affect Integumentary: Yes: Normal Color - Diagnostic (1) Cannabis dependence Current Visit: Yes Status: Chronic (2) Alcohol dependence with withdrawal Current Visit: No Status: Acute Qualifiers: Complication of substance-induced condition: uncomplicated Qualified Code(s ): F10.230 - Alcohol dependence with withdrawal, uncomplicated (3) Asthma Current Visit: No Status: Chronic Qualifiers: Asthma severity: mild Asthma persistence: intermittent Asthma complication type: unspecified Qualified Code(s): J45.20 - Mild intermittent asthma, uncomplicated (4) Nicotine dependence Current Visit: No Status: Chronic Qualifiers: Nicotine product type: cigarettes Substance use status: uncomplicated Qualified Code(s): F17.210 - Nicotine dependence, cigarettes, uncomplicated (5) Opioid dependence on agonist therapy Current Visit: No Status: Chronic (6) Type 2 diabetes mellitus with hyperglycemia Current Visit: No Status: Chronic Qualifiers: Diabetes mellitus fdc insulin use: with fdc use Qualified Code( s): E11.65 - Type 2 diabetes mellitus with hyperglycemia; Z79.4 - long-term ( current) use of insulin BHS Breath Alcohol Content Breath Alcohol Content: 0.092 Urine Drug Screen - Results Drug Screen Negative: No Urine Drug Screen Results: THC-Marijuana, MTD-Methadone Inpatient Rehab Admission - Rehab Decision to Admit Inpatient rehab admission?: No"
[2019-01-11] MEDS ORDERED: MAG HYDROX/AL HYDROX/SIMETH 30 ML UNIT-DOSE CUP PO PRN (19:12)
[2019-01-11] MEDS ORDERED: P-EPHED 60MG/TRIPROLIDI 2.5MG TABLET PO PRN (19:12)
[2019-01-11] MEDS ORDERED: guaiFENesin/D-METHORPHAN HB 10 ML UNIT-DOSE CUPS PO PRN (19:12)
[2019-01-11] MEDS ORDERED: MAGNESIUM CITRATE 300 ML BOTTLE PO PRN (19:12)
[2019-01-11] MEDS ORDERED: chlordiazePOXIDE HCL 25 MG CAPSULE PO PRN (19:12)
[2019-01-11] MEDS ORDERED: MAGNESIUM HYDROX 2400MG/30ML ORAL SUSPENSION 30 ML CUP PO PRN (19:12)
[2019-01-11] MEDS ORDERED: IBUPROFEN 400 MG TABLET (FP) PO PRN (19:12)
[2019-01-11] MEDS ORDERED: MENTHOL/PHENOL 1 EACH UD MM PRN (19:12)
[2019-01-11] MEDS ORDERED: ACETAMINOPHEN 325 MG TABLET (FP) PO PRN (19:12)
[2019-01-11] MEDS ORDERED: PATIENT'S OWN MEDICATION (NON-FORMULARY) (Insulin Glargine,Hum.Rec.Anlog 30 UNITS) SQ SCH (22:00)
[2019-01-11] MEDS ORDERED: traZODone HCL 150 MG TABLET PO SCH (22:00)
[2019-01-11] MEDS: ATORVASTATIN CA 10 MG TABLET (FP) PO SCH (23:02)
[2019-01-11] MEDS: THIAMINE HCL 100 MG TABLET (FP) PO SCH (23:02)
[2019-01-11] MEDS: INSULIN (LEVEMIR) 100 UNITS/ML UNITS SQ SCH (23:03)
[2019-01-11] MEDS: chlordiazePOXIDE HCL 25 MG CAPSULE PO SCH (23:03)
[2019-01-11] MEDS: INSULIN SLIDING SCALE (NOVOLOG) 1 VIAL SQ SCH (23:03)
[2019-01-11] MEDS: MELATONIN 5 MG TABLETS PO PRN (23:06)
[2019-01-11] MEDS: traZODone HCL 50 MG TABLET (FP) PO SCH (23:12)
[2019-01-12] MEDS: chlordiazePOXIDE HCL 25 MG CAPSULE PO SCH ×4 (05:50→22:14)
[2019-01-12] MEDS: INSULIN SLIDING SCALE (NOVOLOG) 1 VIAL SQ SCH ×4 (06:03→21:34)
[2019-01-12] MEDS: METHADONE HCL 40 MG DISPERSABLE TABLET PO SCH (10:26)
[2019-01-12] MEDS: ASPIRIN 81 MG CHEWABLE TABLETS PO SCH (10:26)
[2019-01-12] MEDS: LISINOPRIL 10 MG TABLET (FP) PO SCH (10:26)
[2019-01-12] MEDS: PRENATAL VITAMINS W/ FOLIC ACID TABLET (FP) PO SCH (10:27)
[2019-01-12 11:25] LABS: ALBUMIN 2.8 g/dl (3.4-5.0); ALK PHOS 72 U/L (45-117); ANION GAP 6 MMOL/L (8-16); BILIRUBIN,TOTAL 0.3 mg/dL (0.2-1); BLOOD UREA NITROGEN 10 mg/dL (7-18); CALCIUM 7.8 mg/dL (8.5-10.1); CHLORIDE 104 mmol/L (98-107); CO2 30 mmol/L (21-32); CREATININE 0.7 mg/dL (0.55-1.3); GLUCOSE,RANDOM 60 mg/dL (74-106); POTASSIUM 3.8 mmol/L (3.5-5.1); SGOT/AST 57 U/L (15-37); SGPT/ALT 55 U/L (13-61); SODIUM 140 mmol/L (136-145); TOT PROT 5.8 g/dl (6.4-8.2)
[2019-01-12 11:28] LABS: HEMATOCRIT 30.9 % (35.4-49); HEMOGLOBIN 10.3 GM/dL (11.7-16.9); MCH 32.6 pg (25.7-33.7); MCHC 33.3 g/dl (32.0-35.9); MEAN CELL VOLUME 97.8 fl (80-96); MEAN PLT VOLUME 9.2 fl (7.5-11.1); PLATELET COUNT 193 K/MM3 (134-434); RBC 3.16 M/mm3 (4.00-5.60); RDW 18.6 % (11.9-15.9); WHITE BLOOD COUNT 6.5 K/mm3 (4.0-10.0)
[2019-01-12] MEDS ORDERED: ALBUTEROL SO4 8 GM HFA INHALER IH PRN (15:37)
--- NOTE | 2019-01-12 15:37 | PN ---
[facility] CIWA - CIWA Score Nausea/Vomitin-No Nausea/No Vomiting Muscle Tremors: None Anxiety: 2 Agitation: 0-Normal Activity Paroxysmal Sweats: 3 Orientation: 2-Disoriented Date<2 days Tacttile Disturbances: 1-Very Mild Itch/Numbness Auditory Disturbances: 0-None Visual Disturbances: 3-Moderate Sensitivity Headache: 3-Moderate CIWA-Ar Total Score: 14 S Progress Note (SOAP) Subjective: Diarrhea, Fatigue, Sweating, H/A, Body Aches, Stomach Cramping, Interrupted Sleep. Objective: PATIENT A & O X 2 (UNCERTAIN ABOUT CURRENT DAY / DATE). IN NO ACUTE DISTRESS. PATIENT DENIES CHEST PAIN. 01/12/19 15:35 Vital Signs Temperature 98.3 F 01/12/19 14:48 Pulse Rate 88 01/12/19 15:00 Respiratory Rate 18 01/12/19 15:00 Blood Pressure 167/78 01/12/19 14:48 O2 Sat by Pulse Oximetry (%) Laboratory Tests 01/11/19 01/12/19 01/12/19 22:56 05:48 07:45 WBC 6.5 RBC 3.16 L Hgb 10.3 L Hct 30.9 L MCV 97.8 H MCH 32.6 D MCHC 33.3 RDW 18.6 H Plt Count 193 D MPV 9.2 D Sodium Potassium Chloride Carbon Dioxide Anion Gap BUN Creatinine Creat Clearance w eGFR POC Glucometer 123 96 Random Glucose Calcium Total Bilirubin AST ALT Alkaline Phosphatase Total Protein Albumin RPR Titer 01/12/19 01/12/19 01/12/19 07:45 07:45 11:36 WBC RBC Hgb Hct MCV MCH MCHC RDW Plt Count MPV Sodium 140 Potassium 3.8 Chloride 104 Carbon Dioxide 30 Anion Gap 6 L BUN 10 Creatinine 0.7 Creat Clearance w eGFR > 60 POC Glucometer 198 Random Glucose 60 L Calcium 7.8 L Total Bilirubin 0.3 AST 57 H ALT 55 Alkaline Phosphatase 72 Total Protein 5.8 L Albumin 2.8 L RPR Titer Nonreactive LABS NOTED. Assessment: 01/12/19 15:39 WITHDRAWAL SYMPTOMS. ANEMIA (MACROCYTIC.) Plan: CONTINUE DETOX. START LOSARTAN, 50 MG PO DAILY FOR HTN (RECONCILED FOR PATIENT'S HOME MEDICATION LIST). PATIENT IS CURRENTLY RECEIVING DAILY MVI CONTAINING B VITAMINS AND IRON WHILE ADMITTED FOR DETOX. AMMONIA LEVEL TOMORROW AM (PATIENT REPORTED HISTORY OF PRESCRIBED LACTULOSE ON ADMISSON, UNCLEAR TO WHEN LAST TAKEN). REPEAT CBC TOMORROW AM FOR ANEMIA NOTED ON ADMISSION CBC. INCREASE DAILY PO FLUID INTAKE. PRN IMMODIUM FOR DIARRHEA.
[2019-01-12] MEDS: LOSARTAN POTASSIUM 50 MG TABLET (FP) PO SCH (16:08)
[2019-01-12] MEDS: INSULIN (LEVEMIR) 100 UNITS/ML UNITS SQ SCH (21:33)
[2019-01-12] MEDS: ATORVASTATIN CA 10 MG TABLET (FP) PO SCH (21:36)
[2019-01-12] MEDS: THIAMINE HCL 100 MG TABLET (FP) PO SCH (21:36)
[2019-01-12] MEDS: traZODone HCL 50 MG TABLET (FP) PO SCH (21:36)
[2019-01-12] MEDS: MELATONIN 5 MG TABLETS PO PRN (22:14)
[2019-01-13] MEDS: chlordiazePOXIDE HCL 25 MG CAPSULE PO SCH ×3 (05:45→17:54)
[2019-01-13] MEDS: METHADONE HCL 40 MG DISPERSABLE TABLET PO SCH (05:45)
[2019-01-13] MEDS: INSULIN SLIDING SCALE (NOVOLOG) 1 VIAL SQ SCH ×4 (06:25→22:14)
[2019-01-13] MEDS ORDERED: INSULIN SLIDING SCALE (NOVOLOG) 1 VIAL SQ ONE ×2 (06:33→11:19)
[2019-01-13] MEDS: LISINOPRIL 10 MG TABLET (FP) PO SCH (10:27)
[2019-01-13] MEDS: PRENATAL VITAMINS W/ FOLIC ACID TABLET (FP) PO SCH (10:28)
[2019-01-13] MEDS: LOSARTAN POTASSIUM 50 MG TABLET (FP) PO SCH (10:28)
[2019-01-13] MEDS: ASPIRIN 81 MG CHEWABLE TABLETS PO SCH (10:28)
[2019-01-13 10:38] LABS: BASO % 0.6 % (0-2.0); EOS % 0.7 % (0-4.5); HEMATOCRIT 32.6 % (35.4-49); LYMPH % 24.5 % (8-40); MCH 33.1 pg (25.7-33.7); MCHC 33.9 g/dl (32.0-35.9); MEAN CELL VOLUME 97.7 fl (80-96); MEAN PLT VOLUME 9.8 fl (7.5-11.1); MONO % 15.2 % (3.8-10.2); PLATELET COUNT 168 K/MM3 (134-434); RBC 3.34 M/mm3 (4.00-5.60)
--- NOTE | 2019-01-13 10:56 | PN ---
S CIWA - CIWA Score Nausea/Vomitin-Mild Nausea/No Vomiting Muscle Tremors: 3 Anxiety: 2 Agitation: 2 Paroxysmal Sweats: 1-Minimal Palms Moist Orientation: 0-Oriented Tacttile Disturbances: 0-None Auditory Disturbances: 1-Very Mild Visual Disturbances: 0-None Headache: 2-Mild CIWA-Ar Total Score: 12 BHS Progress Note (SOAP) Subjective: tremor sweating trouble sleep through the night low energy Objective: 01/13/19 10:55 Vital Signs Temperature 98.9 F 01/13/19 09:43 Pulse Rate 78 01/13/19 09:43 Respiratory Rate 20 01/13/19 09:43 Blood Pressure 140/84 01/13/19 09:43 O2 Sat by Pulse Oximetry (%) Laboratory Last Values WBC 6.0 K/mm3 (4.0-10.0) 01/13/19 07:50 RBC 3.34 M/mm3 (4.00-5.60) L 01/13/19 07:50 Hgb 11.0 GM/dL (11.7-16.9) L 01/13/19 07:50 Hct 32.6 % (35.4-49) L 01/13/19 07:50 MCV 97.7 fl (80-96) H 01/13/19 07:50 MCH 33.1 pg (25.7-33.7) 01/13/19 07:50 MCHC 33.9 g/dl (32.0-35.9) 01/13/19 07:50 RDW 18.0 % (11.9-15.9) H 01/13/19 07:50 Plt Count 168 K/MM3 (134-434) 01/13/19 07:50 MPV 9.8 fl (7.5-11.1) 01/13/19 07:50 Absolute Neuts (auto) 3.6 K/mm3 (1.5-8.0) 01/13/19 07:50 Neutrophils % 59.0 % (42.8-82.8) D 01/13/19 07:50 Lymphocytes % 24.5 % (8-40) D 01/13/19 07:50 Monocytes % 15.2 % (3.8-10.2) H D 01/13/19 07:50 Eosinophils % 0.7 % (0-4.5) 01/13/19 07:50 Basophils % 0.6 % (0-2.0) 01/13/19 07:50 Nucleated RBC % 0 % (0-0) 01/13/19 07:50 Sodium 140 mmol/L (136-145) 01/12/19 07:45 Potassium 3.8 mmol/L (3.5-5.1) 01/12/19 07:45 Chloride 104 mmol/L (98-107) 01/12/19 07:45 Carbon Dioxide 30 mmol/L (21-32) 01/12/19 07:45 Anion Gap 6 MMOL/L (8-16) L 01/12/19 07:45 BUN 10 mg/dL (7-18) 01/12/19 07:45 Creatinine 0.7 mg/dL (0.55-1.3) 01/12/19 07:45 Creat Clearance w eGFR > 60 (>60) 01/12/19 07:45 POC Glucometer 250 UNITS (80-120) 01/13/19 05:44 Random Glucose 60 mg/dL (74-106) L 01/12/19 07:45 Calcium 7.8 mg/dL (8.5-10.1) L 01/12/19 07:45 Total Bilirubin 0.3 mg/dL (0.2-1) 01/12/19 07:45 AST 57 U/L (15-37) H 01/12/19 07:45 ALT 55 U/L (13-61) 01/12/19 07:45 Alkaline Phosphatase 72 U/L (45-117) 01/12/19 07:45 Total Protein 5.8 g/dl (6.4-8.2) L 01/12/19 07:45 Albumin 2.8 g/dl (3.4-5.0) L 01/12/19 07:45 RPR Titer Nonreactive (NONREACTIVE) 01/12/19 07:45 hypertension low Ca++ lab noted 01/13/19 11:02 Assessment: 01/13/19 11:02 withdrawal sx hypertension low Ca++ Plan: continue detox oscal bid ammonia pending increase lorsartan to 100 mg
[2019-01-13] MEDS: CALCIUM 250MG/VIT-D 125 UNITS 1 COMBO TABLET PO SCH ×2 (14:15→22:09)
[2019-01-13] MEDS ORDERED: LOSARTAN POTASSIUM 50 MG TABLET (FP) PO ONE (16:00)
[2019-01-13] MEDS: chlordiazePOXIDE 5 MG CAPSULE PO SCH (22:09)
[2019-01-13] MEDS: traZODone HCL 50 MG TABLET (FP) PO SCH (22:09)
[2019-01-13] MEDS: ATORVASTATIN CA 10 MG TABLET (FP) PO SCH (22:09)
[2019-01-13] MEDS: MELATONIN 5 MG TABLETS PO PRN (22:11)
[2019-01-13] MEDS: INSULIN (LEVEMIR) 100 UNITS/ML UNITS SQ SCH (22:13)
[2019-01-13] MEDS: THIAMINE HCL 100 MG TABLET (FP) PO SCH (22:58)
[2019-01-14] MEDS: chlordiazePOXIDE 5 MG CAPSULE PO SCH ×3 (05:39→17:22)
[2019-01-14] MEDS: METHADONE HCL 40 MG DISPERSABLE TABLET PO SCH (05:39)
[2019-01-14] MEDS: INSULIN SLIDING SCALE (NOVOLOG) 1 VIAL SQ SCH ×4 (06:41→22:02)
[2019-01-14] MEDS ORDERED: INSULIN SLIDING SCALE (NOVOLOG) 1 VIAL SQ ONE (07:02)
[2019-01-14] MEDS: LISINOPRIL 10 MG TABLET (FP) PO SCH (10:12)
[2019-01-14] MEDS: PRENATAL VITAMINS W/ FOLIC ACID TABLET (FP) PO SCH (10:12)
[2019-01-14] MEDS: ASPIRIN 81 MG CHEWABLE TABLETS PO SCH (10:12)
[2019-01-14] MEDS: LOSARTAN POTASSIUM 50 MG TABLET (FP) PO SCH (10:12)
[2019-01-14] MEDS: CALCIUM 250MG/VIT-D 125 UNITS 1 COMBO TABLET PO SCH ×2 (11:20→21:32)
--- NOTE | 2019-01-14 15:00 | PN ---
S CIWA - CIWA Score Nausea/Vomitin-No Nausea/No Vomiting Muscle Tremors: 2 Anxiety: 1-Mildly Anxious Agitation: 2 Paroxysmal Sweats: 1-Minimal Palms Moist Orientation: 0-Oriented Tacttile Disturbances: 0-None Auditory Disturbances: 0-None Visual Disturbances: 0-None Headache: 1-Very Mild CIWA-Ar Total Score: 7 BHS Progress Note (SOAP) Subjective: feeling better less sweating mild tremor Objective: 01/14/19 15:02 Vital Signs Temperature 98.1 F 01/14/19 13:50 Pulse Rate 66 01/14/19 13:50 Respiratory Rate 18 01/14/19 13:50 Blood Pressure 166/84 01/14/19 13:50 O2 Sat by Pulse Oximetry (%) Laboratory Last Values WBC 6.0 K/mm3 (4.0-10.0) 01/13/19 07:50 RBC 3.34 M/mm3 (4.00-5.60) L 01/13/19 07:50 Hgb 11.0 GM/dL (11.7-16.9) L 01/13/19 07:50 Hct 32.6 % (35.4-49) L 01/13/19 07:50 MCV 97.7 fl (80-96) H 01/13/19 07:50 MCH 33.1 pg (25.7-33.7) 01/13/19 07:50 MCHC 33.9 g/dl (32.0-35.9) 01/13/19 07:50 RDW 18.0 % (11.9-15.9) H 01/13/19 07:50 Plt Count 168 K/MM3 (134-434) 01/13/19 07:50 MPV 9.8 fl (7.5-11.1) 01/13/19 07:50 Absolute Neuts (auto) 3.6 K/mm3 (1.5-8.0) 01/13/19 07:50 Neutrophils % 59.0 % (42.8-82.8) D 01/13/19 07:50 Lymphocytes % 24.5 % (8-40) D 01/13/19 07:50 Monocytes % 15.2 % (3.8-10.2) H D 01/13/19 07:50 Eosinophils % 0.7 % (0-4.5) 01/13/19 07:50 Basophils % 0.6 % (0-2.0) 01/13/19 07:50 Nucleated RBC % 0 % (0-0) 01/13/19 07:50 Sodium 140 mmol/L (136-145) 01/12/19 07:45 Potassium 3.8 mmol/L (3.5-5.1) 01/12/19 07:45 Chloride 104 mmol/L (98-107) 01/12/19 07:45 Carbon Dioxide 30 mmol/L (21-32) 01/12/19 07:45 Anion Gap 6 MMOL/L (8-16) L 01/12/19 07:45 BUN 10 mg/dL (7-18) 01/12/19 07:45 Creatinine 0.7 mg/dL (0.55-1.3) 01/12/19 07:45 Creat Clearance w eGFR > 60 (>60) 01/12/19 07:45 POC Glucometer 335 UNITS (80-120) 01/14/19 11:30 Random Glucose 60 mg/dL (74-106) L 01/12/19 07:45 Calcium 7.8 mg/dL (8.5-10.1) L 01/12/19 07:45 Total Bilirubin 0.3 mg/dL (0.2-1) 01/12/19 07:45 AST 57 U/L (15-37) H 01/12/19 07:45 ALT 55 U/L (13-61) 01/12/19 07:45 Alkaline Phosphatase 72 U/L (45-117) 01/12/19 07:45 Ammonia 104.70 umol/L (11-32) H 01/13/19 08:00 Total Protein 5.8 g/dl (6.4-8.2) L 01/12/19 07:45 Albumin 2.8 g/dl (3.4-5.0) L 01/12/19 07:45 RPR Titer Nonreactive (NONREACTIVE) 01/12/19 07:45 lab noted chronic ammonia serum level elevation low Ca++ Assessment: 01/14/19 15:04 mild withdrawal sx 01/14/19 15:05 ammonia serum level elevation Plan: continue detox lactulose qid
[2019-01-14] MEDS: LACTULOSE 20 GM/30 ML UDC (FOR ORAL USE ONLY) PO SCH ×2 (17:22→21:29)
[2019-01-14] MEDS: THIAMINE HCL 100 MG TABLET (FP) PO SCH (21:29)
[2019-01-14] MEDS: INSULIN (LEVEMIR) 100 UNITS/ML UNITS SQ SCH (21:30)
[2019-01-14] MEDS: ATORVASTATIN CA 10 MG TABLET (FP) PO SCH (21:32)
[2019-01-14] MEDS: traZODone HCL 50 MG TABLET (FP) PO SCH (21:32)
[2019-01-14] MEDS: chlordiazePOXIDE HCL 10 MG CAPSULE PO SCH (22:02)
[2019-01-14] MEDS: MELATONIN 5 MG TABLETS PO PRN (22:02)
[2019-01-15] MEDS: chlordiazePOXIDE HCL 10 MG CAPSULE PO SCH ×2 (05:42→10:27)
[2019-01-15] MEDS: METHADONE HCL 40 MG DISPERSABLE TABLET PO SCH (05:42)
[2019-01-15] MEDS: INSULIN SLIDING SCALE (NOVOLOG) 1 VIAL SQ SCH ×2 (06:47→11:30)
[2019-01-15] MEDS ORDERED: INSULIN SLIDING SCALE (NOVOLOG) 1 VIAL SQ ONE (06:56)
[2019-01-15] MEDS ORDERED: cloNIDine HCL 0.1 MG TABLET PO PRN (08:58)
[2019-01-15] MEDS: ASPIRIN 81 MG CHEWABLE TABLETS PO SCH (10:25)
[2019-01-15] MEDS: PRENATAL VITAMINS W/ FOLIC ACID TABLET (FP) PO SCH (10:25)
[2019-01-15] MEDS: CALCIUM 250MG/VIT-D 125 UNITS 1 COMBO TABLET PO SCH (10:25)
[2019-01-15] MEDS: LOSARTAN POTASSIUM 50 MG TABLET (FP) PO SCH (10:25)
[2019-01-15] MEDS: LISINOPRIL 10 MG TABLET (FP) PO SCH (10:25)
[2019-01-15] MEDS: LACTULOSE 20 GM/30 ML UDC (FOR ORAL USE ONLY) PO SCH ×2 (10:25→14:15)
--- NOTE | 2019-01-15 11:53 | DS ---
[facility] Detox Discharge Summary Admission Date: 01/11/19 Discharge Date: 01/15/19 - History Present History: Alcohol Dependence Additional Comments: 58 years old male admitted on 01/11/19 for alcohol withdrawal stabilization completed alcohol detox regimen aftercare [facility] patient has elevated ammonia serum level treated with lactulose has ammonia level 152 after two doses of lactulose - Physical Exam Results Vital Signs: Vital Signs Temperature 97.1 F L 01/15/19 09:37 Pulse Rate 80 01/15/19 09:37 Respiratory Rate 18 01/15/19 09:37 Blood Pressure 131/72 01/15/19 09:37 O2 Sat by Pulse Oximetry (%) Pertinent Admission Physical Exam Findings: alcohol withdrawal sx Laboratory Last Values WBC 6.0 K/mm3 (4.0-10.0) 01/13/19 07:50 RBC 3.34 M/mm3 (4.00-5.60) L 01/13/19 07:50 Hgb 11.0 GM/dL (11.7-16.9) L 01/13/19 07:50 Hct 32.6 % (35.4-49) L 01/13/19 07:50 MCV 97.7 fl (80-96) H 01/13/19 07:50 MCH 33.1 pg (25.7-33.7) 01/13/19 07:50 MCHC 33.9 g/dl (32.0-35.9) 01/13/19 07:50 RDW 18.0 % (11.9-15.9) H 01/13/19 07:50 Plt Count 168 K/MM3 (134-434) 01/13/19 07:50 MPV 9.8 fl (7.5-11.1) 01/13/19 07:50 Absolute Neuts (auto) 3.6 K/mm3 (1.5-8.0) 01/13/19 07:50 Neutrophils % 59.0 % (42.8-82.8) D 01/13/19 07:50 Lymphocytes % 24.5 % (8-40) D 01/13/19 07:50 Monocytes % 15.2 % (3.8-10.2) H D 01/13/19 07:50 Eosinophils % 0.7 % (0-4.5) 01/13/19 07:50 Basophils % 0.6 % (0-2.0) 01/13/19 07:50 Nucleated RBC % 0 % (0-0) 01/13/19 07:50 Sodium 140 mmol/L (136-145) 01/12/19 07:45 Potassium 3.8 mmol/L (3.5-5.1) 01/12/19 07:45 Chloride 104 mmol/L (98-107) 01/12/19 07:45 Carbon Dioxide 30 mmol/L (21-32) 01/12/19 07:45 Anion Gap 6 MMOL/L (8-16) L 01/12/19 07:45 BUN 10 mg/dL (7-18) 01/12/19 07:45 Creatinine 0.7 mg/dL (0.55-1.3) 01/12/19 07:45 Creat Clearance w eGFR > 60 (>60) 01/12/19 07:45 POC Glucometer 286 UNITS (80-120) 01/15/19 11:29 Random Glucose 60 mg/dL (74-106) L 01/12/19 07:45 Calcium 7.8 mg/dL (8.5-10.1) L 01/12/19 07:45 Total Bilirubin 0.3 mg/dL (0.2-1) 01/12/19 07:45 AST 57 U/L (15-37) H 01/12/19 07:45 ALT 55 U/L (13-61) 01/12/19 07:45 Alkaline Phosphatase 72 U/L (45-117) 01/12/19 07:45 Ammonia 152.04 umol/L (11-32) H 01/15/19 08:00 Total Protein 5.8 g/dl (6.4-8.2) L 01/12/19 07:45 Albumin 2.8 g/dl (3.4-5.0) L 01/12/19 07:45 RPR Titer Nonreactive (NONREACTIVE) 01/12/19 07:45 lab noted ammonia elevation low calcium - Treatment Hospital Course: Detox Protocol Followed, Detoxed Safely, Responded well, Discharged Condition Good, Rehab Referral Accepted Patient has Accepted a Rehab Referral to: [facility] - Medication Discharge Medications: Ambulatory Orders Insulin Glargine,Hum.rec.anlog [Lantus (10mL VIAL) -] 35 units SQ HS 09/28/15 Thiamine HCl [Vitamin B1 -] 100 mg PO HS #30 tablet 10/02/15 traZODone HCL [Desyrel -] 150 mg PO HS #30 tablet 06/11/18 Docusate Sodium [Dok] 100 mg PO HS PRN 09/05/18 Multivitamin [Poly-Vitamin] 1 each PO DAILY 09/05/18 Aspirin [ASA -] 81 mg PO DAILY #30 tab.chew 09/10/18 Albuterol Sulfate Inhaler - [Ventolin HFA Inhaler -] 2 puff IH Q4H PRN #1 inhaler 01/14/19 Atorvastatin Ca [Lipitor] 10 mg PO HS #14 tablet 01/14/19 Lactulose (Oral Use) [Cephulac -] 20 gm PO QID #1 udc 01/14/19 Lactulose (Oral Use) [Cephulac -] 20 gm PO TID #1 udc 01/14/19 Lisinopril [Prinivil] 40 mg PO DAILY #14 tablet 01/14/19 Losartan Potassium [Cozaar -] 50 mg PO DAILY #14 tablet 01/14/19 - Diagnosis (1) Diabetes mellitus, type II, insulin dependent Current Visit: Yes Status: Chronic (2) HTN (hypertension) Current Visit: Yes Status: Chronic Qualifiers: Hypertension type: essential hypertension Qualified Code(s): I10 - Essential (primary) hypertension (3) Alcohol dependence with withdrawal Current Visit: Yes Status: Acute Qualifiers: Complication of substance-induced condition: uncomplicated Qualified Code(s ): F10.230 - Alcohol dependence with withdrawal, uncomplicated (4) Hyperammonemia Current Visit: Yes Status: Chronic (5) Asthma Current Visit: Yes Status: Chronic Qualifiers: Asthma severity: mild Asthma persistence: intermittent Asthma complication type: unspecified Qualified Code(s): J45.20 - Mild intermittent asthma, uncomplicated (6) GERD (gastroesophageal reflux disease) Current Visit: Yes Status: Chronic Qualifiers: Esophagitis presence: esophagitis presence not specified Qualified Code(s) : K21.9 - Gastro-esophageal reflux disease without esophagitis (7) Hepatitis C Current Visit: Yes Status: Chronic Qualifiers: Viral hepatitis chronicity: chronic (8) Hypercholesteremia Current Visit: Yes Status: Chronic (9) Methadone maintenance therapy patient Current Visit: Yes Status: Chronic (10) Nicotine dependence Current Visit: Yes Status: Acute Qualifiers: Nicotine product type: cigarettes Substance use status: in withdrawal Qualified Code(s): F17.213 - Nicotine dependence, cigarettes, with withdrawal - AMA Did Patient Leave Against Medical Advice: No
[2019-01-15 13:36] VITALS: BP 115/72; PULSE 95; TEMP 99.4
== END 2019-01-15 15:20 | disposition other institution (70) | DRG 773 ==
LOC: YASAS 14:29 → Y3N 20:43
PROVIDERS: ADMIT Surgery; ATTEND Surgery
PROC: HZ2ZZZZ Detoxification Services for Substance Abuse Treatment (ICD-10-PCS; principal; 2019-01-11)
DX: F10.230 Alcohol dependence with withdrawal, uncomplicated (principal); F11.20 Opioid dependence, uncomplicated; F12.20 Cannabis dependence, uncomplicated; F17.213 Nicotine dependence, cigarettes, with withdrawal; I10 Essential (primary) hypertension; E11.65 Type 2 diabetes mellitus with hyperglycemia; E72.20 Disorder of urea cycle metabolism, unspecified; J45.20 Mild intermittent asthma, uncomplicated; K21.9 Gastro-esophageal reflux disease without esophagitis; B18.2 Chronic viral hepatitis C; E78.00 Pure hypercholesterolemia, unspecified; D50.9 Iron deficiency anemia, unspecified; Z86.73 Personal history of transient ischemic attack (TIA), and cerebral infarction without residual deficits
CPT/HCPCS: 36415; 80053; 82140; 82962; 85025; 85027; 86593

== ENCOUNTER 2019-01-15 15:35 | Inpatient (IN) | payer OTHER ==
--- NOTE | 2019-01-15 11:54 | HP ---
[facility] Rehab Assess/Revision - Admission History Admitted to Rehab from: [facility] Date of Admission to Rehab: 01/15/19 - Findings Detox History & Physical reviewed: Yes Concur with findings: Yes Comments/Additional Findings: transferred from detox to rehab admission as per protocol Inpatient Rehab Admission - Rehab Decision to Admit Inpatient rehab admission?: Yes - Initial Determination Are CD services needed?: Yes Free of communicable disease: Yes Not in need of hospitalization: Yes - Rehab Admission Criteria Previous failed treatment: Yes Poor recovery environment: Yes Comorbidities: Yes Lacks judgement: No Patient is meeting Inpatient Rehab admission criteria:: Yes
[~2019-01-15 15:35] MED LIST: ALBUTEROL SO4 8 GM HFA INHALER IH PRN; LOPERAMIDE HCL 2 MG CAPSULE PO PRN; MAG HYDROX/AL HYDROX/SIMETH 30 ML UNIT-DOSE CUP PO PRN; MAGNESIUM CITRATE 300 ML BOTTLE PO PRN; MAGNESIUM HYDROX 2400MG/30ML ORAL SUSPENSION 30 ML CUP PO PRN; MENTHOL/PHENOL 1 EACH UD MM PRN; NICOTINE POLACRILEX 2 MG GUM BUC PRN; P-EPHED 60MG/TRIPROLIDI 2.5MG TABLET PO PRN; guaiFENesin/D-METHORPHAN HB 10 ML UNIT-DOSE CUPS PO PRN
[2019-01-15] MEDS ORDERED: NICOTINE 14 MG/24 HOURS TOPICAL PATCH TD PRN (16:15)
[2019-01-15] MEDS: INSULIN SLIDING SCALE (NOVOLOG) 1 VIAL SQ SCH ×2 (17:01→21:19)
[2019-01-15] MEDS: LACTULOSE 20 GM/30 ML UDC (FOR ORAL USE ONLY) PO SCH ×3 (17:18→21:18)
[2019-01-15] MEDS: MELATONIN 5 MG TABLETS PO PRN (21:18)
[2019-01-15] MEDS: THIAMINE HCL 100 MG TABLET (FP) PO SCH (21:18)
[2019-01-15] MEDS: INSULIN (LEVEMIR) 100 UNITS/ML UNITS SQ SCH (21:21)
[2019-01-15] MEDS ORDERED: traZODone HCL 50 MG TABLET (FP) PO ONE (23:45)
[2019-01-16] MEDS ORDERED: INSULIN (NOVOLOG) ASPART 100 UNITS/ML 10ML VIAL ONE ×2 (00:03→12:10)
[2019-01-16] MEDS: INSULIN SLIDING SCALE (NOVOLOG) 1 VIAL SQ SCH ×4 (06:23→21:14)
[2019-01-16] MEDS: LOSARTAN POTASSIUM 50 MG TABLET (FP) PO SCH (09:45)
[2019-01-16] MEDS: ASPIRIN 81 MG CHEWABLE TABLETS PO SCH (09:45)
[2019-01-16] MEDS: PRENATAL VITAMINS W/ FOLIC ACID TABLET (FP) PO SCH (09:45)
[2019-01-16] MEDS: LISINOPRIL 20 MG TABLET (FP) PO SCH (09:45)
[2019-01-16] MEDS: LACTULOSE 20 GM/30 ML UDC (FOR ORAL USE ONLY) PO SCH ×4 (09:45→21:15)
--- NOTE | 2019-01-16 09:55 | CONSULT ---
[facility] Psychiatric Consult - Data Date of interview: 01/16/19 Admission source: Self-referred Identifying data: Mr Bajwa is a 58 years old single male, father of 3 children, unemployed on public assistance, domiciled seeking detox treatment for alcohol and cannabis Substance Abuse History: Reports history of alcohol and marijusana use. He started drinking alcohol and smoking marijuana at age 14, consumes a fifth of vodka daily and $5 worth of marijuana 1-2 times weekly. Last smoked marijuana on 12/27/17 and drank vodka on 01/11/19. Refer to addiction counselor's summary for further information Medical History: Significant for bronchial asthma, hypertension, type 2 diabetes mellitus, history of treatment for Hep C and surgery for abdomial hernia repair. Patient is on methadone 80 mg/day([facility]). Smokes 7 cigarettes daily Psychiatric History: Patient is a poor historian. He initially denies previous psychiatric treatment. However, when his memory was refreshed with entries from previous admissions, he acknowledges having 2 previous psychiatric hospitalizations in the past for depression. He said that the first one was in [facility] in the 70's and second one at [facility] in the 80[facility] s. Reports that he has not attended outpatient psychiatric treatment for years and has not been taking any medications recently. Claims that he used to take Trazadone, Paxil etc. According to entry in this facility EMR, he was last prescribed medication by KIMBERLEE phillip on 09/06/18 and he was prescribed Trazadone 100 mg po HS. Denies previous suicidal attempt. At present, denies depressive symptoms, S/H ideations. However, reports sleeping poorly and requests to resume Trazadone Physical/Sexual Abuse/Trauma History: Denies history of emotional, physical or sexual abuse as well as DV relationship. No service Additional Comment: Reports history of multiple previous arrests including 3 felony convictions. Denies being on parole/probation at present Mental Status Exam - Mental Status Exam Alert and Oriented to: Time, Place, Person Cognitive Function: Fair Patient Appearance: Disheveled Mood: Hopeful, Euthymic Affect: Appropriate Patient Behavior: Cooperative Speech Pattern: Clear Voice Loudness: Normal Thought Process: Intact Thought Disorder: Not Present Hallucinations: Denies Suicidal Ideation: Denies Homicidal Ideation: Denies Insight/Judgement: Fair Sleep: Poorly Appetite: Good Muscle strength/Tone: Normal Gait/Station: Normal Psychiatric Findings - Problem List ([place] 1, 2,3) (1) MDD (major depressive disorder), recurrent episode, severe Current Visit: No Status: Chronic (2) Substance-induced sleep disorder Current Visit: Yes Status: Acute (3) Alcohol dependence Current Visit: No Status: Acute Qualifiers: Substance use status: in withdrawal Complication of substance-induced condition: with unspecified complication Qualified Code(s): F10.239 - Alcohol dependence with withdrawal, unspecified (4) Cannabis dependence Current Visit: No Status: Acute (5) Opioid dependence on agonist therapy Current Visit: No Status: Chronic (6) Nicotine dependence Current Visit: Yes Status: Chronic (7) Asthma Current Visit: No Status: Chronic Qualifiers: Asthma severity: mild Asthma persistence: intermittent Asthma complication type: unspecified Qualified Code(s): J45.20 - Mild intermittent asthma, uncomplicated (8) Diabetes 1.5, managed as type 1 Current Visit: No Status: Chronic (9) GERD (gastroesophageal reflux disease) Current Visit: No Status: Chronic Qualifiers: Esophagitis presence: esophagitis presence not specified Qualified Code(s) : K21.9 - Gastro-esophageal reflux disease without esophagitis (10) HTN (hypertension) Current Visit: No Status: Chronic Qualifiers: Hypertension type: essential hypertension Qualified Code(s): I10 - Essential (primary) hypertension (11) Hepatitis C Current Visit: No Status: Chronic Qualifiers: Viral hepatitis chronicity: chronic (12) Hypercholesteremia Current Visit: No Status: Resolved (13) Obesity Current Visit: No Status: Chronic Qualifiers: Obesity type: unspecified obesity type - Initial Treatment Plan Initial Treatment Plan: 1) Start Trazadone 100 mg po HS. 2) Continue inpatient rehabilitation
[2019-01-16] MEDS ORDERED: METHADONE HCL 40 MG DISPERSABLE TABLET PO ONE (10:00)
[2019-01-16] MEDS: METHADONE HCL 40 MG DISPERSABLE TABLET PO SCH (10:34)
[2019-01-16] MEDS: INSULIN (LEVEMIR) 100 UNITS/ML UNITS SQ SCH (21:13)
[2019-01-16] MEDS: traZODone HCL 50 MG TABLET (FP) PO SCH (21:15)
[2019-01-16] MEDS: MELATONIN 5 MG TABLETS PO PRN (21:15)
[2019-01-16] MEDS: THIAMINE HCL 100 MG TABLET (FP) PO SCH (21:15)
[2019-01-16] MEDS ORDERED: traZODone HCL 100 MG TABLET (FP) PO SCH (22:00)
[2019-01-17] MEDS: METHADONE HCL 40 MG DISPERSABLE TABLET PO SCH (06:14)
[2019-01-17] MEDS ORDERED: INSULIN (NOVOLOG) ASPART 100 UNITS/ML 10ML VIAL ONE ×2 (06:17→11:32)
[2019-01-17] MEDS: INSULIN SLIDING SCALE (NOVOLOG) 1 VIAL SQ SCH ×4 (07:30→21:10)
[2019-01-17] MEDS: ASPIRIN 81 MG CHEWABLE TABLETS PO SCH (11:22)
[2019-01-17] MEDS: LACTULOSE 20 GM/30 ML UDC (FOR ORAL USE ONLY) PO SCH ×4 (11:22→21:08)
[2019-01-17] MEDS: LISINOPRIL 20 MG TABLET (FP) PO SCH (11:23)
[2019-01-17] MEDS: PRENATAL VITAMINS W/ FOLIC ACID TABLET (FP) PO SCH (11:23)
[2019-01-17] MEDS: LOSARTAN POTASSIUM 50 MG TABLET (FP) PO SCH (11:23)
[2019-01-17] MEDS: LIDOCAINE 5% TOPICAL PATCH TP SCH (14:26)
[2019-01-17] MEDS: traZODone HCL 50 MG TABLET (FP) PO SCH (21:08)
[2019-01-17] MEDS: THIAMINE HCL 100 MG TABLET (FP) PO SCH (21:08)
[2019-01-17] MEDS: MELATONIN 5 MG TABLETS PO PRN (21:08)
[2019-01-17] MEDS: INSULIN (LEVEMIR) 100 UNITS/ML UNITS SQ SCH (21:10)
[2019-01-17] MEDS: METHYL SALICYLATE/MENTHOL OINT 30 GM TUBE TP SCH (21:11)
[2019-01-17] MEDS: LIDOCAINE PATCH REMOVAL MC SCH (21:53)
[2019-01-18] MEDS: METHADONE HCL 40 MG DISPERSABLE TABLET PO SCH (06:23)
[2019-01-18] MEDS ORDERED: INSULIN (NOVOLOG) ASPART 100 UNITS/ML 10ML VIAL ONE ×3 (06:27→16:32)
[2019-01-18] MEDS: INSULIN SLIDING SCALE (NOVOLOG) 1 VIAL SQ SCH ×4 (07:21→21:08)
[2019-01-18] MEDS: LACTULOSE 20 GM/30 ML UDC (FOR ORAL USE ONLY) PO SCH ×4 (10:01→21:08)
[2019-01-18] MEDS: ASPIRIN 81 MG CHEWABLE TABLETS PO SCH (10:01)
[2019-01-18] MEDS: PRENATAL VITAMINS W/ FOLIC ACID TABLET (FP) PO SCH (10:01)
[2019-01-18] MEDS: LIDOCAINE 5% TOPICAL PATCH TP SCH (10:01)
[2019-01-18] MEDS: LISINOPRIL 20 MG TABLET (FP) PO SCH (10:02)
[2019-01-18] MEDS: LOSARTAN POTASSIUM 50 MG TABLET (FP) PO SCH (10:02)
[2019-01-18] MEDS: traZODone HCL 50 MG TABLET (FP) PO SCH (21:08)
[2019-01-18] MEDS: INSULIN (LEVEMIR) 100 UNITS/ML UNITS SQ SCH (21:08)
[2019-01-18] MEDS: THIAMINE HCL 100 MG TABLET (FP) PO SCH (21:08)
[2019-01-18] MEDS: LIDOCAINE PATCH REMOVAL MC SCH (21:10)
[2019-01-18] MEDS: MELATONIN 5 MG TABLETS PO PRN (21:10)
[2019-01-18] MEDS: METHYL SALICYLATE/MENTHOL OINT 30 GM TUBE TP SCH (21:11)
[2019-01-19] MEDS: METHADONE HCL 40 MG DISPERSABLE TABLET PO SCH (06:18)
[2019-01-19] MEDS ORDERED: INSULIN (NOVOLOG) ASPART 100 UNITS/ML 10ML VIAL ONE ×3 (07:03→16:48)
[2019-01-19] MEDS: INSULIN SLIDING SCALE (NOVOLOG) 1 VIAL SQ SCH ×4 (07:35→22:08)
[2019-01-19] MEDS: ASPIRIN 81 MG CHEWABLE TABLETS PO SCH (09:31)
[2019-01-19] MEDS: LIDOCAINE 5% TOPICAL PATCH TP SCH (09:31)
[2019-01-19] MEDS: PRENATAL VITAMINS W/ FOLIC ACID TABLET (FP) PO SCH (09:31)
[2019-01-19] MEDS: LOSARTAN POTASSIUM 50 MG TABLET (FP) PO SCH (09:31)
[2019-01-19] MEDS: LACTULOSE 20 GM/30 ML UDC (FOR ORAL USE ONLY) PO SCH ×4 (09:31→21:10)
[2019-01-19] MEDS: LISINOPRIL 20 MG TABLET (FP) PO SCH (09:32)
[2019-01-19] MEDS: LIDOCAINE PATCH REMOVAL MC SCH (21:09)
[2019-01-19] MEDS: THIAMINE HCL 100 MG TABLET (FP) PO SCH (21:09)
[2019-01-19] MEDS: METHYL SALICYLATE/MENTHOL OINT 30 GM TUBE TP SCH (21:11)
[2019-01-19] MEDS: traZODone HCL 50 MG TABLET (FP) PO SCH (21:11)
[2019-01-19] MEDS: MELATONIN 5 MG TABLETS PO PRN (21:13)
[2019-01-19] MEDS: INSULIN (LEVEMIR) 100 UNITS/ML UNITS SQ SCH (22:09)
[2019-01-20] MEDS ORDERED: INSULIN (NOVOLOG) ASPART 100 UNITS/ML 10ML VIAL ONE ×4 (06:03→22:13)
[2019-01-20] MEDS: METHADONE HCL 40 MG DISPERSABLE TABLET PO SCH (06:04)
[2019-01-20] MEDS: INSULIN SLIDING SCALE (NOVOLOG) 1 VIAL SQ SCH ×4 (06:04→21:15)
[2019-01-20] MEDS: ASPIRIN 81 MG CHEWABLE TABLETS PO SCH (09:48)
[2019-01-20] MEDS: LACTULOSE 20 GM/30 ML UDC (FOR ORAL USE ONLY) PO SCH ×4 (09:48→21:12)
[2019-01-20] MEDS: PRENATAL VITAMINS W/ FOLIC ACID TABLET (FP) PO SCH (09:49)
[2019-01-20] MEDS: LIDOCAINE 5% TOPICAL PATCH TP SCH (09:49)
[2019-01-20] MEDS: LISINOPRIL 20 MG TABLET (FP) PO SCH (09:49)
[2019-01-20] MEDS: LOSARTAN POTASSIUM 50 MG TABLET (FP) PO SCH (09:49)
[2019-01-20] MEDS: traZODone HCL 50 MG TABLET (FP) PO SCH (21:12)
[2019-01-20] MEDS: THIAMINE HCL 100 MG TABLET (FP) PO SCH (21:13)
[2019-01-20] MEDS: LIDOCAINE PATCH REMOVAL MC SCH (21:13)
[2019-01-20] MEDS: MELATONIN 5 MG TABLETS PO PRN (21:13)
[2019-01-20] MEDS: INSULIN (LEVEMIR) 100 UNITS/ML UNITS SQ SCH (21:15)
[2019-01-20] MEDS: METHYL SALICYLATE/MENTHOL OINT 30 GM TUBE TP SCH (21:16)
[2019-01-21] MEDS: METHADONE HCL 40 MG DISPERSABLE TABLET PO SCH (06:20)
[2019-01-21] MEDS ORDERED: INSULIN (NOVOLOG) ASPART 100 UNITS/ML 10ML VIAL ONE ×3 (06:24→21:01)
[2019-01-21] MEDS: INSULIN SLIDING SCALE (NOVOLOG) 1 VIAL SQ SCH ×4 (06:25→21:22)
[2019-01-21] MEDS: LOSARTAN POTASSIUM 50 MG TABLET (FP) PO SCH (10:01)
[2019-01-21] MEDS: LACTULOSE 20 GM/30 ML UDC (FOR ORAL USE ONLY) PO SCH ×4 (10:01→21:28)
[2019-01-21] MEDS: ASPIRIN 81 MG CHEWABLE TABLETS PO SCH (10:02)
[2019-01-21] MEDS: LISINOPRIL 20 MG TABLET (FP) PO SCH (10:02)
[2019-01-21] MEDS: LIDOCAINE 5% TOPICAL PATCH TP SCH (10:02)
[2019-01-21] MEDS: PRENATAL VITAMINS W/ FOLIC ACID TABLET (FP) PO SCH (10:03)
[2019-01-21] MEDS: traZODone HCL 50 MG TABLET (FP) PO SCH (21:22)
[2019-01-21] MEDS: THIAMINE HCL 100 MG TABLET (FP) PO SCH (21:22)
[2019-01-21] MEDS: INSULIN (LEVEMIR) 100 UNITS/ML UNITS SQ SCH (21:25)
[2019-01-21] MEDS: LIDOCAINE PATCH REMOVAL MC SCH (21:26)
[2019-01-21] MEDS: MELATONIN 5 MG TABLETS PO PRN (21:26)
[2019-01-21] MEDS: METHYL SALICYLATE/MENTHOL OINT 30 GM TUBE TP SCH (21:28)
[2019-01-22] MEDS ORDERED: METHADONE HCL 40 MG DISPERSABLE TABLET PO SCH (06:00)
[2019-01-22] MEDS ORDERED: INSULIN (NOVOLOG) ASPART 100 UNITS/ML 10ML VIAL ONE (06:08)
[2019-01-22] MEDS: METHADONE HCL 40 MG DISPERSABLE TABLET PO SCH (06:10)
[2019-01-22 06:43] VITALS: BP 120/71; PULSE 73; TEMP 97.4
[2019-01-22] MEDS: INSULIN SLIDING SCALE (NOVOLOG) 1 VIAL SQ SCH (07:05)
--- NOTE | 2019-01-22 08:23 | PN ---
[facility] Progress Note Note: received notification that patient is in methadone maintenance treatment program renew methadone daily as per verified
[2019-01-22] MEDS: ASPIRIN 81 MG CHEWABLE TABLETS PO SCH (09:58)
[2019-01-22] MEDS: LOSARTAN POTASSIUM 50 MG TABLET (FP) PO SCH (09:58)
[2019-01-22] MEDS: PRENATAL VITAMINS W/ FOLIC ACID TABLET (FP) PO SCH (09:59)
[2019-01-22] MEDS: LACTULOSE 20 GM/30 ML UDC (FOR ORAL USE ONLY) PO SCH (09:59)
[2019-01-22] MEDS: LIDOCAINE 5% TOPICAL PATCH TP SCH (09:59)
[2019-01-22] MEDS: LISINOPRIL 20 MG TABLET (FP) PO SCH (09:59)
--- NOTE | 2019-01-22 10:23 | PN ---
[facility] Progress Note Note: PT COMPLETED REHAB AND DISCHARGING TODAY. PT MET WITH HIS COUNSELOR MS GENIA HUERTAN AND REFERRED TO [facility] PROGRAM ON [address] [place] [address] FOR CD AFTERCARE. PT REPORTS HE HAS PRIMARY CARE WITH DR. NICHOLE AT [address] FOR MEDICAL MANAGEMENT OF COMORBID CONDITIONS. [facility] ELECTRONICALLY SENT TO PT PREFERRED PHARMACY FOR BOAT LOADER AFTER DISCHARGE. PT ALSO REPORTS HE IS GOING TO HIS CLINIC TODAY AFTER LEAVING HERE. Home Medications Medication Instructions Recorded Insulin Glargine,Hum.rec.anlog 35 units SQ HS 09/28/15 [Lantus (10mL VIAL) -] Thiamine HCl [Vitamin B1 -] 100 mg PO HS #30 tablet 10/02/15 traZODone HCL [Desyrel -] 150 mg PO HS #30 tablet 06/11/18 Docusate Sodium [Dok] 100 mg PO HS PRN 09/05/18 Multivitamin [Poly-Vitamin] 1 each PO DAILY 09/05/18 Albuterol Sulfate Inhaler - 2 puff IH Q4H PRN #1 inhaler 01/14/19 [Ventolin HFA Inhaler -] Atorvastatin Ca [Lipitor] 10 mg PO HS #14 tablet 01/14/19 Lactulose (Oral Use) [Cephulac -] 20 gm PO QID #1 udc 01/14/19 Lactulose (Oral Use) [Cephulac -] 20 gm PO TID #1 udc 01/14/19 Lisinopril [Prinivil] 40 mg PO DAILY #14 tablet 01/14/19 Losartan Potassium [Cozaar -] 50 mg PO DAILY #14 tablet 01/14/19 Methadone [Dolophine -] 80 mg PO DAILY 01/15/19 Aspirin [ASA -] 81 mg PO DAILY #30 tab.chew 01/22/19 Vital Signs - 8 hr 01/22/19 06:42 Temperature 97.4 F L Pulse Rate 73 Respiratory 16 Rate Blood Pressure 120/71 Laboratory Tests 01/15/19 01/15/19 01/16/19 17:00 21:17 06:22 POC Glucometer 302 267 168 Ammonia 01/16/19 01/16/19 01/16/19 10:40 11:44 16:55 POC Glucometer 289 353 Ammonia 45.70 H 01/16/19 01/17/19 01/17/19 21:12 06:12 11:28 POC Glucometer 333 319 309 Ammonia 01/17/19 01/17/19 01/18/19 16:53 20:43 06:23 POC Glucometer 324 462 248 Ammonia 01/18/19 01/18/19 01/18/19 11:10 16:44 20:50 POC Glucometer 329 316 357 Ammonia 01/19/19 01/19/19 01/19/19 06:21 11:38 16:42 POC Glucometer 227 383 363 Ammonia 01/19/19 01/20/19 01/20/19 22:05 06:01 11:43 POC Glucometer 420 235 320 Ammonia 01/20/19 01/20/19 01/21/19 16:52 21:11 06:19 POC Glucometer 285 257 367 Ammonia 01/21/19 01/21/19 01/21/19 12:26 16:35 21:21 POC Glucometer 274 284 323 Ammonia 01/22/19 06:04 POC Glucometer 334 Ammonia NAD MEDICALLY STABLE PLAN:FOLLOW UP WITH CD AFTERCARE RECOMMENDED ON 01/23/19 AT 8:00 A.M FOLLOW UP WITH YOUR PCP AT [facility] TODAY AFTER DISCHARGE WITH YOUR LABS AND RX. BOAT LOADER YOUR [facility] FROM YOUR PHARMACY TODAY. GO TO [facility] IF MEDICALLY NEEDED.
--- NOTE | 2019-01-22 10:28 | PN ---
[facility] Progress Note Note: Asked by nursing staff to electronically transmit medication for patient being discharged today. Trazadone 150 mg po HS transmitted to Pharmacy at [address] [place] [id number]
== END 2019-01-22 10:25 | disposition home or self-care (01) | DRG 772 ==
LOC: YASAS 15:35 → Y5N 15:37
PROVIDERS: ADMIT Neuromusculoskeletal Medicine & OMM; ATTEND Neuromusculoskeletal Medicine & OMM
PROC: HZ42ZZZ Group Counseling for Substance Abuse Treatment, Cognitive-Behavioral (ICD-10-PCS; principal; 2019-01-15)
DX: F10.20 Alcohol dependence, uncomplicated (principal); F11.20 Opioid dependence, uncomplicated; F17.210 Nicotine dependence, cigarettes, uncomplicated; F33.2 Major depressive disorder, recurrent severe without psychotic features; F19.282 Other psychoactive substance dependence with psychoactive substance-induced sleep disorder; I10 Essential (primary) hypertension; J45.20 Mild intermittent asthma, uncomplicated; E11.9 Type 2 diabetes mellitus without complications; K21.9 Gastro-esophageal reflux disease without esophagitis; E78.00 Pure hypercholesterolemia, unspecified; E66.01 Morbid (severe) obesity due to excess calories; Z68.32 Body mass index [BMI] 32.0-32.9, adult; Z79.4 Long term (current) use of insulin
CPT/HCPCS: 82140; 82962

== ENCOUNTER 2021-01-24 13:57 | Inpatient (IN) | payer OTHER ==
[2021-01-24 16:24] VITALS: BMI 30.7
[2021-01-24] MEDS ORDERED: METHADONE HCL 10 MG TABLET (FOR DETOX USE ONLY) PO ONE (17:26)
[2021-01-24] MEDS ORDERED: chlordiazePOXIDE HCL 25 MG CAPSULE PO ONE (17:26)
[2021-01-24] MEDS ORDERED: METHADONE HCL 10 MG TABLET (FOR DETOX USE ONLY) ONE (17:53)
[2021-01-24] MEDS ORDERED: chlordiazePOXIDE HCL 25 MG CAPSULE ONE (17:53)
[2021-01-25] MEDS ORDERED: MAGNESIUM HYDROX 2400MG/30ML ORAL SUSPENSION 30 ML CUP PO PRN (00:17)
[2021-01-25] MEDS ORDERED: ACETAMINOPHEN 325 MG TABLET (FP) PO PRN (00:17)
[2021-01-25] MEDS ORDERED: BENZOCAINE/MENTH/CETYLPYRD CL 1 EACH LOZENGE MM PRN (00:17)
[2021-01-25] MEDS ORDERED: METHOCARBAMOL 500 MG TABLET PO PRN (00:17)
[2021-01-25] MEDS ORDERED: MAG HYDROX/AL HYDROX/SIMETH 30 ML UNIT-DOSE CUP PO PRN (00:17)
[2021-01-25] MEDS ORDERED: IBUPROFEN 400 MG TABLET (FP) PO PRN (00:17)
[2021-01-25] MEDS ORDERED: BISMUTH SUBSALICYLATE 524 MG/30 ML UD PO PRN (00:17)
[2021-01-25] MEDS ORDERED: ONDANSETRON *ODT* 4 MG TABLET SL PRN (00:17)
[2021-01-25] MEDS ORDERED: MAGNESIUM CITRATE 300 ML BOTTLE PO PRN (00:17)
[2021-01-25] MEDS ORDERED: chlordiazePOXIDE HCL 25 MG CAPSULE PO PRN (00:21)
[2021-01-25] MEDS ORDERED: ALBUTEROL SO4 HFA INHALER IH PRN (00:44)
[2021-01-25] MEDS: chlordiazePOXIDE HCL 25 MG CAPSULE PO SCH ×4 (05:47→22:31)
[2021-01-25] MEDS: INSULIN (LEVEMIR) 100 UNITS/ML UNITS SQ SCH (07:33)
[2021-01-25] MEDS ORDERED: METHADONE HCL 40 MG DISPERSABLE TABLET PO ONE (09:15)
[2021-01-25] MEDS ORDERED: BACITRACIN 15 GM TUBE TOPICAL OINTMENT TP SCH (10:00)
[2021-01-25] MEDS: LISINOPRIL 20 MG TABLET PO SCH (10:05)
[2021-01-25] MEDS: PRENATAL VITAMINS W/ FOLIC ACID TABLET (FP) PO SCH (10:06)
[2021-01-25] MEDS: ASPIRIN 81 MG CHEWABLE TABLETS PO SCH (10:06)
[2021-01-25] MEDS: BACITRACIN 0.9 GM PACKET TP SCH (10:06)
[2021-01-25] MEDS: ACETAMINOPHEN 325 MG TABLET (FP) PO PRN (17:42)
[2021-01-25] MEDS ORDERED: PATIENT'S OWN MEDICATION (NON-FORMULARY) (Insulin Glargine,Hum.Rec.Anlog 100 UNITS/ML Vial SQ SCH (22:00)
[2021-01-25] MEDS: ATORVASTATIN CA 10 MG TABLET (FP) PO SCH (22:31)
[2021-01-25] MEDS: MELATONIN 5 MG TABLETS PO SCH (22:31)
[2021-01-25] MEDS: THIAMINE HCL 100 MG TABLET (FP) PO SCH (22:31)
[2021-01-25] MEDS: INSULIN SLIDING SCALE (NOVOLOG) 1 VIAL SQ SCH ×2 (22:32→22:38)
[2021-01-26] MEDS: METHADONE HCL 40 MG DISPERSABLE TABLET PO SCH (05:26)
[2021-01-26] MEDS: chlordiazePOXIDE HCL 25 MG CAPSULE PO SCH ×4 (05:26→22:41)
[2021-01-26] MEDS: INSULIN (LEVEMIR) 100 UNITS/ML UNITS SQ SCH (06:06)
[2021-01-26] MEDS: INSULIN SLIDING SCALE (NOVOLOG) 1 VIAL SQ SCH ×4 (06:07→22:41)
[2021-01-26] MEDS: PRENATAL VITAMINS W/ FOLIC ACID TABLET (FP) PO SCH (10:33)
[2021-01-26] MEDS: BACITRACIN 0.9 GM PACKET TP SCH (10:33)
[2021-01-26] MEDS: ASPIRIN 81 MG CHEWABLE TABLETS PO SCH (10:34)
[2021-01-26] MEDS: ACETAMINOPHEN 325 MG TABLET (FP) PO PRN (10:34)
[2021-01-26] MEDS: LISINOPRIL 20 MG TABLET PO SCH (10:34)
[2021-01-26 10:36] LABS: POTASSIUM 4.4 mmol/L (3.5-5.1)
[2021-01-26 10:38] LABS: CALCIUM 9.4 mg/dL (8.5-10.1)
[2021-01-26 10:39] LABS: ALBUMIN 3.6 g/dl (3.4-5.0); BLOOD UREA NITROGEN 17.3 mg/dL (7-18)
[2021-01-26 10:40] LABS: HEMATOCRIT 38.4 % (35.4-49); HEMOGLOBIN 12.6 GM/dL (11.7-16.9); MCH 31.3 pg (25.7-33.7); MCHC 32.9 g/dl (32.0-35.9); MEAN CELL VOLUME 95.3 fl (80-96); MEAN PLT VOLUME 11.7 fl (7.5-11.1); PLATELET COUNT 84 K/MM3 (134-434); RBC 4.03 M/mm3 (4.00-5.60); RDW 15.1 % (11.9-15.9); WHITE BLOOD COUNT 8.5 K/mm3 (4.0-10.0)
[2021-01-26 10:43] LABS: BILIRUBIN,TOTAL 0.9 mg/dL (0.2-1)
[2021-01-26 10:44] LABS: TOT PROT 7.1 g/dl (6.4-8.2)
[2021-01-26] MEDS ORDERED: INSULIN SLIDING SCALE (NOVOLOG) 1 VIAL SQ ONE (14:54)
[2021-01-26] MEDS: ATORVASTATIN CA 10 MG TABLET (FP) PO SCH (22:40)
[2021-01-26] MEDS: THIAMINE HCL 100 MG TABLET (FP) PO SCH (22:41)
[2021-01-26] MEDS: MELATONIN 5 MG TABLETS PO SCH (22:41)
[2021-01-27] MEDS ORDERED: chlordiazePOXIDE HCL 10 MG CAPSULE PO PRN
[2021-01-27] MEDS: METHADONE HCL 40 MG DISPERSABLE TABLET PO SCH (05:39)
[2021-01-27] MEDS: chlordiazePOXIDE HCL 10 MG CAPSULE PO SCH ×4 (05:39→22:30)
[2021-01-27] MEDS: INSULIN (LEVEMIR) 100 UNITS/ML UNITS SQ SCH (07:15)
[2021-01-27] MEDS: INSULIN SLIDING SCALE (NOVOLOG) 1 VIAL SQ SCH ×4 (07:15→22:31)
[2021-01-27] MEDS: BACITRACIN 0.9 GM PACKET TP SCH (10:30)
[2021-01-27] MEDS: PRENATAL VITAMINS W/ FOLIC ACID TABLET (FP) PO SCH (10:30)
[2021-01-27] MEDS: LISINOPRIL 20 MG TABLET PO SCH (10:30)
[2021-01-27] MEDS: ASPIRIN 81 MG CHEWABLE TABLETS PO SCH (10:30)
[2021-01-27] MEDS: ATORVASTATIN CA 10 MG TABLET (FP) PO SCH (22:30)
[2021-01-27] MEDS: MELATONIN 5 MG TABLETS PO SCH (22:30)
[2021-01-27] MEDS: THIAMINE HCL 100 MG TABLET (FP) PO SCH (22:30)
[2021-01-28] MEDS: chlordiazePOXIDE HCL 10 MG CAPSULE PO SCH ×2 (05:25→18:40)
[2021-01-28] MEDS: METHADONE HCL 40 MG DISPERSABLE TABLET PO SCH (05:26)
[2021-01-28] MEDS: INSULIN (LEVEMIR) 100 UNITS/ML UNITS SQ SCH (06:14)
[2021-01-28] MEDS: INSULIN SLIDING SCALE (NOVOLOG) 1 VIAL SQ SCH ×4 (06:15→22:22)
[2021-01-28] MEDS: ASPIRIN 81 MG CHEWABLE TABLETS PO SCH (11:24)
[2021-01-28] MEDS: PRENATAL VITAMINS W/ FOLIC ACID TABLET (FP) PO SCH (11:24)
[2021-01-28] MEDS: LISINOPRIL 20 MG TABLET PO SCH (11:25)
[2021-01-28] MEDS: BACITRACIN 0.9 GM PACKET TP SCH (11:29)
[2021-01-28] MEDS: ACETAMINOPHEN 325 MG TABLET (FP) PO PRN (18:41)
[2021-01-28] MEDS: MELATONIN 5 MG TABLETS PO SCH (22:22)
[2021-01-28] MEDS: ATORVASTATIN CA 10 MG TABLET (FP) PO SCH (22:22)
[2021-01-28] MEDS: THIAMINE HCL 100 MG TABLET (FP) PO SCH (22:22)
[2021-01-29] MEDS ORDERED: chlordiazePOXIDE HCL 10 MG CAPSULE PO ONE (05:00)
[2021-01-29] MEDS: METHADONE HCL 40 MG DISPERSABLE TABLET PO SCH (05:30)
[2021-01-29] MEDS: INSULIN SLIDING SCALE (NOVOLOG) 1 VIAL SQ SCH (07:52)
[2021-01-29] MEDS: INSULIN (LEVEMIR) 100 UNITS/ML UNITS SQ SCH (07:52)
[2021-01-29 09:18] VITALS: BP 155/94; PULSE 97; TEMP 97.7
== END 2021-01-29 09:33 | disposition home or self-care (01) | DRG 773 ==
LOC: YASAS 13:57 → Y3N 19:28
PROVIDERS: ADMIT Allergy & Immunology; ATTEND Allergy & Immunology
PROC: HZ2ZZZZ Detoxification Services for Substance Abuse Treatment (ICD-10-PCS; principal; 2021-01-24)
DX: F11.23 Opioid dependence with withdrawal (principal); F10.230 Alcohol dependence with withdrawal, uncomplicated; F12.20 Cannabis dependence, uncomplicated; F10.24 Alcohol dependence with alcohol-induced mood disorder; F10.282 Alcohol dependence with alcohol-induced sleep disorder; F33.1 Major depressive disorder, recurrent, moderate; E11.9 Type 2 diabetes mellitus without complications; Z79.4 Long term (current) use of insulin; I10 Essential (primary) hypertension; J45.20 Mild intermittent asthma, uncomplicated; K21.9 Gastro-esophageal reflux disease without esophagitis; E66.9 Obesity, unspecified; Z68.30 Body mass index [BMI] 30.0-30.9, adult; Z87.891 Personal history of nicotine dependence; S00.83XD Contusion of other part of head, subsequent encounter; W19.XXXD Unspecified fall, subsequent encounter
CPT/HCPCS: 36415; 80053; 82962; 85027; 86780; 93005; 93010; C9803; U0003

== ENCOUNTER 2021-01-24 18:35 | Emergency (ER) | payer OTHER ==
[2021-01-24 18:50] VITALS: BP 137/88; PULSE 106; TEMP 99.1; BMI 30.7
== END 2021-01-24 20:00 | disposition home or self-care (01) ==
LOC: JER 18:35
DX: S00.03XA Contusion of scalp, initial encounter (principal); F10.20 Alcohol dependence, uncomplicated; W19.XXXA Unspecified fall, initial encounter
CPT/HCPCS: 70450-TC; 70486-TC; 72125-TC; 99285-25